=== PATIENT | female | born 1950 | race Caucasian/White ===

== ENCOUNTER → 2016-09-22 | Outpatient (CLI) | payer BC ==
--- NOTE | 2016-09-23 13:31 | MAMMOGRAPHY REPORT ---
BILATERAL DIGITAL SCREENING MAMMOGRAM WITH CAD: 09/22/2016 CLINICAL HISTORY: Routine screening. Patient has no complaints. TECHNIQUE: Current study was also evaluated with a Computer Aided Detection (CAD) system. Bilatera l CC and MLO views were obtained. COMPARISON: Comparison is made to exams dated: 09/16/2015 mammogram, 09/10/2014 mammogram, 09/09/2013 m ammogram, 08/28/2012 mammogram, 08/24/2011 mammogram, and 08/23/2010 mammogram - [facility]. BREAST COMPOSITION: There are scattered areas of fibroglandular density in both breasts. FINDINGS: No suspicious masses, calcifications, or areas of architectural distortion are noted in e ither breast. There has been no significant interval change compared to prior exams. Small bilatera l circumscribed benign-appearing masses are stable compared to prior exams. IMPRESSION: ACR BI-RADS CATEGORY 2: BENIGN There is no mammographic evidence of malignancy. A 1 year screening mammogram is recommended. The p atient will receive written notification of the results. Approximately 10% of breast cancers are not detected with mammography. A negative mammographic repor t should not delay biopsy if a clinically suggestive mass is present. Yumiko Miguel M.D. ah/:09/22/2016 16:05:03 Greenhouse Grower: Vicky HSU)(Keo)(BD), [facility] letter sent: Normal 1/2 BI-RADS Code: ACR BI-RADS Category 2: Benign
== END | disposition home or self-care (01) ==
LOC: C.MAMM 15:51
PROVIDERS: ATTEND Obstetrics & Gynecology
DX: Z12.31 Encounter for screening mammogram for malignant neoplasm of breast (principal)

== ENCOUNTER → 2016-10-10 | Outpatient (CLI) | payer BC | END | disposition home or self-care (01) | LOC: C.PAPS 09:41 | PROVIDERS: ATTEND Obstetrics & Gynecology | DX: Z01.419 Encounter for gynecological examination (general) (routine) without abnormal findings (principal) ==

== ENCOUNTER → 2017-09-25 | Outpatient (CLI) | payer OTHER ==
--- NOTE | 2017-09-26 15:13 | MAMMOGRAPHY REPORT ---
BILATERAL DIGITAL SCREENING MAMMOGRAM TOMOSYNTHESIS WITH CAD: 09/25/2017 CLINICAL HISTORY: Routine screening. Patient has no complaints. TECHNIQUE: Breast tomosynthesis in addition to standard 2D mammography was performed. Current study was also evaluated with a Computer Aided Detection (CAD) system. COMPARISON: Comparison is made to exams dated: 09/22/2016 mammogram, 09/16/2015 mammogram, 09/10/2014 maria de jesus mogram, 09/09/2013 mammogram, 08/28/2012 mammogram, and 08/24/2011 mammogram - [facility] er. BREAST COMPOSITION: There are scattered areas of fibroglandular density in both breasts. FINDINGS: No suspicious mass, architectural distortion or cluster of microcalcifications is seen. T here are stable benign masses in the lateral right breast and medial left breast. IMPRESSION: ACR BI-RADS CATEGORY 1: NEGATIVE There is no mammographic evidence of malignancy. A 1 year screening mammogram is recommended. The pa tient will receive written notification of the results. Approximately 10% of breast cancers are not detected with mammography. A negative mammographic report should not delay biopsy if a clinically suggestive mass is present. Tyra Groves M.D. ay/:09/25/2017 16:40:00 Tie Sawyer: Alondra SANTIAGO(R)(M), [facility] letter sent: Normal 1/2 BI-RADS Code: ACR BI-RADS Category 1: Negative
== END | disposition home or self-care (01) ==
LOC: C.MAMM 16:02
PROVIDERS: ATTEND Obstetrics & Gynecology
DX: Z12.31 Encounter for screening mammogram for malignant neoplasm of breast (principal)

== ENCOUNTER → 2017-11-20 | Outpatient (CLI) | payer OTHER | END | disposition home or self-care (01) | LOC: C.PAPS 11:33 | PROVIDERS: ATTEND Obstetrics & Gynecology | DX: Z12.4 Encounter for screening for malignant neoplasm of cervix (principal) ==

== ENCOUNTER 2024-11-19 07:45 | Observation (INO) ==
--- NOTE | 2024-10-09 13:18 | PAT Medication Instructions ---
Medication Instructions Date of Service October 09, 2024 Home Medications Medication Instructions Recorded acetaminophen 500 mg tablet 1,000 mg (2 x 500 mg) PO Q8 PRN 04/08/22 (Tylenol Extra Strength) pain #30 tabs alendronate 70 mg tablet (Fosamax) 70 mg PO WK #12 tabs 02/26/24 cholecalciferol (vitamin D3) 50 mcg (2,000 unit) capsule (Vitamin D3) 50 mcg PO QAM acetaminophen 500 mg tablet (Tylenol Extra Strength) 1,000 mg (2 x 500 mg) PO Q8 PRN pain alendronate 70 mg tablet (Fosamax) 70 mg PO WK rosuvastatin 10 mg tablet 10 mg PO HS glucosamine-chondroitin 250 mg-200 mg tablet (Osteo Bi-Flex) 1 tab PO DAILY ASK your prescriber and surgeon alendronate 70 mg tablet (Fosamax) 70 mg PO WK STOP taking 2 weeks before surgery (or as soon as possible if surgery is within 2 weeks) glucosamine-chondroitin 250 mg-200 mg tablet (Osteo Bi-Flex) 1 tab PO DAILY Take morning of surgery With a small sip of water, OTHERWISE NOTHING TO EAT OR DRINK AFTER MIDNIGHT: cholecalciferol (vitamin D3) 50 mcg (2,000 unit) capsule (Vitamin D3) 50 mcg PO QAM Take evening before surgery acetaminophen 500 mg tablet (Tylenol Extra Strength) 1,000 mg (2 x 500 mg) PO Q8 PRN pain (if needed) rosuvastatin 10 mg tablet 10 mg PO HS Other Notes If you have any questions please call us at [phone] or [phone] or [phone] or [phone]
--- NOTE | 2024-10-18 10:26 | Anesthesiology Consultation ---
Date of Service October 18, 2024 Assessment & Plan (1) Encounter for pre-operative examination: - Infectious disease screening: Per assessment on 10/18/24- No known recent infectious disease contacts or current infectious disease symptoms. - Outpatient joint assessment: Pt currently scheduled for inpatient pathway. If surgeon requests review for outpatient joint pathway, patient is an acceptable candidate for outpatient joint program from anesthesia standpoint pending surgeon's office assessment that patient is motivated, has good support and completes [facility] Day Joint Program preop requirements. - Patient acceptable risk for surgery pending surgeon-ordered PCP preop evaluation (Dr. Francisco Florez, appt 10/25). Chart Review Chart Review: Patient seen in Pre Admission Testing Teaching & Discussion Pre-Anesthesia Teaching/Discussion Notes: Instructed NPO after midnight before surgery,except medications with 15 cc of water. Medication instructions provided according to the PAT guidelines. History Surgery Operation Date: 11/19/24 07:00 Proposed Procedures p Right Total Knee Arthroplasty - Sebastián Paulino Miranda MD Height/Weight Height: 5 ft 4 in Weight: 75.6 kg Allergies Allergy/AdvReac Type Severity Reaction Status Date / Time No Known Drug Allergies Allergy Verified 10/09/24 09:31 Medications Home Medications Medication Instructions Recorded Confirmed Last Taken cholecalciferol (vitamin D3) 50 50 mcg PO QAM 03/30/22 10/09/24 04/01/22 mcg (2,000 unit) capsule (Vitamin D3) acetaminophen 500 mg tablet 1,000 mg (2 x 500 mg) PO Q8 PRN 04/08/22 10/09/24 Unknown (Tylenol Extra Strength) pain #30 tabs alendronate 70 mg tablet (Fosamax) 70 mg PO WK #12 tabs 02/26/24 10/09/24 Unknown rosuvastatin 10 mg tablet 10 mg PO HS 04/04/24 10/09/24 Unknown glucosamine-chondroitin 250 mg-200 1 tab PO DAILY 10/09/24 10/09/24 Unknown mg tablet (Osteo Bi-Flex) Past Medical History Medical History Bilateral knee pain Dyslipidemia History of COVID-19 (07/2023) Symptoms resolved Laryngopharyngeal reflux Rare No meds/no current issues Osteopenia Presence of pessary Prolapse of female pelvic organs Pessary in place Exercise / Class Metabolic Activity II 4-5 Yardwork/Stairs/Walk up hill (one FS: No CP, no SOB) Past Family History Family History Mother Osteoporosis Cancer Sister Ovarian cancer Cancer Hypertension Father Cardiac disorder Hypertension Son Allergies Other No family history of adverse response to anesthesia Denies family history of Bleeding disorder Past Surgical History Surgical History H/O wisdom tooth extraction History of colonoscopy S/P right knee arthroscopy Right knee arthroscopy, chondroplasty, loose body removal (04/08/22): LMA#4 at [facility] Past Anesthesia History No Hx of Anesthesia Complications and No Family Hx of Anesthesia Complications History of PONV No Hx of PONV and Hx of Motion Sickness (Rare, remote hx) Social History Smoking Status: Never smoker Do You Dip or Chew Tobacco: No Hx Alcohol Use: Yes Alcohol type: wine alcohol intake frequency: a few times a week Hx Substance Use: No substance use type: does not use Review of Systems Patient denies chest pain, shortness of breath, dyspnea on exertion, fever, chills, cough, wheezing, palpitations. Physical Exam Vital Signs BP 112/70 P 65 TEMP 97.9 SP02 95%RA RESP 16 Physical Full cervical extension range of motion. Full TMJ range of motion. TMD > 3.5 finger breaths Mallampati Score II Dentition: intact Lungs: clear throughout to auscultation Cardiac: regular rate and rhythm, no murmurs noted Spine: normal Carotid arteries: negative bruit Extremities: no LE edema Lab Results Anesthesia Preop Results Results Anesthesia Widget: WBC 5.78 K/ul (4.8-10.8) 10/18/24 Hgb 11.5 g/dl (12.0-16.0) L 10/18/24 Hct 35.3 % (37.0-47.0) L 10/18/24 Plt 244 K/uL (130-400) 10/18/24 Na 139 mmol/L (136-145) 10/18/24 K 4.1 mmol/L (3.5-5.1) 10/18/24 Cl 103 mmol/L (98-107) 10/18/24 CO2 30 mmol/L (21-32) 10/18/24 BUN 17 mg/dl (6-23) 10/18/24 Creat 0.70 mg/dl (0.6-1.2) 10/18/24 Glucose Level 71 mg/dl (70-99(Fasting)) 10/18/24 PT 10.9 Seconds (9.0-12.0) 10/18/24 PTT 26 Seconds (21-31) 10/18/24 INR 1.0 (0.9-1.1) 10/18/24 Urine Color Yellow 10/19/24 Urine Appearance Clear (Clear) 10/19/24 Urine pH 5.5 (4.5-7.5) 10/19/24 Urine Specific [place] 1.010 (1.000-1.030) 10/19/24 Urine Protein Negative (Negative) 10/19/24 Urine Glucose (UA) Negative (Negative) 10/19/24 Urine Ketones Negative (Negative) 10/19/24 Urine Blood Negative (Negative) 10/19/24 Urine Nitrite Negative (Negative) 10/19/24 Urine Bilirubin Negative (Negative) 10/19/24 Urine Urobilinogen Negative (Negative) 10/19/24 Urine Leukocyte Esterase 1+ (Negative) H 10/19/24 Urine WBC (Auto) 0-5 /hpf (0-5) 10/19/24 Urine RBC (Auto) 0-2 /hpf (0-2) 10/19/24 Urine Hyaline Casts (Auto) 0-2 /lpf (0-2) 10/19/24 Urine Epithelial Cells (Auto) 0-2 /hpf (0-2) 10/19/24 Urine Bacteria (Auto) None Seen (None Seen) 10/19/24 Blood Type B Positive 10/18/24 Antibody Screen NEGATIVE 10/18/24 Testing Electrocardiogram Date: 10/18/24 Findings: + NSR @ (65) Chest X-Ray Date: 10/18/24 Findings: + NAD
[~2024-11-19 07:45] MED LIST: BUPIVACAINE 0.5 % 5 MG/1 ML PF 10ML VIAL ONE; MIDAZOLAM HCL 1 MG/ML 2ML VIAL ONE; PROPOFOL IV EMULSION 10 MG/ML 20 ML VIAL IV ONE; ROPIVACAINE 0.5% 5 MG/ML 30 ML VIAL ONE
[2024-11-19] MEDS: LR 500ML BOLUS, THEN 15ML/HR IV SCH (08:17)
[2024-11-19] MEDS: LR 60ML/HR IV SCH (08:17)
[2024-11-19] MEDS: CeleBREX 200 MG CAP PO SCH ×2 (08:18→20:52)
[2024-11-19] MEDS: Scopolamine 1 MG TDSY TD SCH (08:18)
[2024-11-19] MEDS: ACETAMINOPHEN 500 MG TAB PO SCH ×2 (08:18→15:37)
[2024-11-19] MEDS ORDERED: fentaNYL citrate PF 100 MCG/2 ML VIAL IV PRN (08:57)
[2024-11-19] MEDS ORDERED: ATROPINE SULFATE 0.1 MG/ML 10ML SYR IV PRN (08:57)
[2024-11-19] MEDS ORDERED: HYDROmorphone INJ 1 MG/ML SYRINGE IV PRN (08:57)
[2024-11-19] MEDS ORDERED: ePHEDrine sulfate 50 MG/ML AMP IV PRN (08:57)
[2024-11-19] MEDS ORDERED: ONDANSETRON INJ 2 MG/ML 2 ML VIAL IV PRN ×2 (08:57→15:02)
--- OUTSIDE RECORDS SUMMARY | 2024-11-19 09:02 | External Medical Summary | Continuity of Care Document ---
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 Truck Leasing Manager Name Role Phone Kareen Malagon Primary Care jimmy [phone] Encounter [facility] [id number] Date(s): 10/25/24 - 10/25/[address], [address] [place] [address] [phone] Encounter Diagnosis Body mass index [BMI] 28.0-28.9, adult(Discharge Diagnosis) - 10/25/24 Physical exam(Discharge Diagnosis) - 10/25/24 Preop examination(Discharge Diagnosis) - 10/25/24 Discharge Disposition: Home or Self Care Attending Physician: Francisco Florez DO, Mariana Annette Referring Physician: Francisco Florez DO, Mariana Annette Encounter Type: Clinic Allergies, Adverse Reactions, Alerts No Known Allergies Assessment and Plan Extracted from: Title:Office Visit Note Author:Francisco Florez DO, Mariana Annette Date:10/25/24 1. Physical exam - encouraged diet and exercise regimen appropriate for patient age and condition - routine dental and eye care per continuity - vaccinations reviewed and up to date per EHR - screening labs reviewed - following with gynecology for routine preventative female care - screening for colon cancer criteria reviewed and recommendations per age and history 2. Preop examination Patient seen for irma-operative risk stratification for R TKA. Patient reports no cardiac symptoms at rest or on exertion, no history of ischemic heart disease, CHF, CVD, diabetes, EtOH/drug abuse, recent anticoagulant or antithrombotic use, personal or family history of coagulopathy, or CKD. Reports being able to achieve 4- 10 METs of activity during climbing stairs/walking uphill. This patient's does not have any identifiable cardiac risk factors. According to the RCRI, this number of risk factors stratifies the patient to Class I, which carries with it a 0.4% risk of major CV complications, such as IL, CHF, or malignant arrhythmia (Circulation 1999; 100:1043). Patient is low risk for the proposed procedure. Immunizations Given and Recorded Vaccine Date Status Refusal Reason pneumococcal 20-valent conjugate vaccine 1 10/25/24 Given influenza virus vaccine, inactivated 05/28/24 Mk rded influenza virus vaccine, inactivated 04/21/22 Mk rded influenza virus vaccine, inactivated 04/24/21 Mk rded influenza virus vaccine, inactivated 05/11/20 Give n influenza virus vaccine, inactivated 08/07/19 Give n influenza virus vaccine, inactivated 05/30/18 Mk rded influenza virus vaccine, inactivated 04/03/17 Mk rded influenza virus vaccine, inactivated 05/03/16 Mk rded influenza virus vaccine, inactivated 04/30/15 Mk rded influenza virus vaccine, inactivated 03/26/14 Mk rded influenza virus vaccine, inactivated 05/31/13 Give n influenza virus vaccine, inactivated 05/18/12 Give n SARS-CoV-2 (COVID-19) mRNA-vacc - [id number] 05/28/24 Recorded SARS-CoV-2 (COVID-19) mRNA-vacc - [id number] 04/20/23 Recorded RSV vaccine preF3, recombinant 05/04/23 Recorded SARS-CoV-2 mRNA-1273 (6y+ bivalent) 2 04/21/22 Rec orded SARS-CoV-2 (COVID-19) mRNA-1273 vaccine 3 11/03/21 Recorded SARS-CoV-2 (COVID-19) mRNA-1273 vaccine 05/19/21 R ecorded SARS-CoV-2 (COVID-19) mRNA-1273 vaccine 09/30/20 R ecorded SARS-CoV-2 (COVID-19) mRNA-1273 vaccine 09/02/20 R ecorded zoster vaccine, inactivated 12/21/19 Recorded zoster vaccine, inactivated 08/13/19 Recorded tetanus toxoids-diphtheria, Td (Adult) 08/13/19 Re corded tetanus toxoids-diphtheria, Td (Adult) 10/25/02 Re corded tetanus toxoids-diphtheria, Td (Adult) 01/19/95 Re corded pneumococcal 23-valent vaccine 08/07/19 Given pneumococcal 13-valent vaccine 09/03/16 Given zoster vaccine live 06/18/12 Given tetanus/diphtheria/pertuss, acel (Tdap) 09/04/07 R ecorded 1Result Comment: Arianna Manjarrez Ma 2Result Comment: 2022-07-14: Historical information-source unspecified 3Result Comment: 2022-07-14: Historical information-source unspecified Mental Status 10/25/24 Barriers to Learning one year None evide nt Mandatory Health Literacy Documentation Yes Health Literacy Communication Barriers N ever Primary Language Slovenian Problem List Condition Confirmation Course Effective Dates Status H ealth Status Informant High risk for hip fracture 1 Confirmed 08/15/19 Active Digital mucinous cyst Confirmed Active Family history of breast cancer in mother 2 Confirmed Active Family history of ovarian cancer 3 Confirmed Active Family history of osteoporosis in mother Confirmed Active Chronic GERD 4 Confirmed Active History of colonic polyps 5 Confirmed Active Healthcare maintenance Confirmed Active Need for influenza vaccination Confirmed Active Onychomycosis Confirmed Active Knee osteoarthritis Confirmed Active Osteopenia Confirmed Active Knee pain, bilateral Confirmed Active Medicare annual wellness visit, subsequent Confirmed Active SK (seborrheic keratosis) Confirmed Active Skin irritation 6 Confirmed Active S/P orthopedic surgery, follow-up exam Confirmed Active Tinea pedis Confirmed Active Weight disorder Confirmed Active 110 yr hip fx. risk: 2.5% 2mother at age 85 3sister at 68 4manifested by cough, hoarseness 5tubular adenoma 6rt great toe Diagnosis Diagnosis Type Effective Dates Health Status Clinical Service Informant Body mass index [BMI] 28.0-28.9, adult Discharge Diagnosis 10/25/24 Non-Specified Preop examination Discharge Diagnosis 10/25/24 Non-Specified Physical exam Discharge Diagnosis 10/25/24 Non-Specified Procedures Procedure Date Related Diagnosis Body Site Status Colonoscopy 1, 2, 3 04/15/24 Compl eted Arthroplasty of right knee 04/08/22 Completed Chondroplasty 4 04/08/22 Completed Mammography 5 03/25/22 Completed Shave biopsy and cauterization of skin 05/19/20 Completed Mammogram 6 05/05/20 Completed DEXA - dual energy X-ray absorptiometry 7 08/15/19 Completed Colonoscopy 8, 9 04/02/19 Complete d Mammogram - screening 10 10/02/18 Completed PAP test date 11 11/20/17 Complete d Mammogram - screening 12 09/25/17 Completed Papanicolaou smear 13 10/10/16 Com pleted Mammogram 14, 15 09/22/16 Complete d DEXA - Dual energy X-ray angela ton absorptiometry 16 07/14/16 Completed Chest x-ray 17 06/06/16 Completed Chest x-ray 18 04/05/16 Completed Chest x-ray 19 04/05/16 Completed PAP test date 20 09/30/15 Complete d Papanicolaou smear 21 09/16/14 Com pleted Mammogram 22 09/10/14 Completed Colonoscopy 23 02/05/14 Completed Papanicolaou smear 24 09/13/13 Com pleted Mammogram - screening 25 09/09/13 Completed DEXA - Dual energy X-ray angela ton absorptiometry 26 01/14/11 Completed colonoscopy and adenoma polypectomy 27 01/28/09 Completed wisdom tooth Completed 1Repeat colonoscopy in 5 years. 2- One 2 mm polyp in the cecum, removed with a cold biopsy forceps. Resected and retrieved. - One 2 mm polyp in the transverse colon, removed with a cold biopsy forceps. Resected and retrieved. - Diverticulosis in the left colon. - Redundant colon. - Internal hemorrhoids. - The examination was otherwise normal on direct and retroflexion views. 3A) Colon, cecum, polypectomy: Tubular adenoma. B) Colon, transverse, polypectomy: Early hyperplastic polyp. 4Patella, MFC, LTP, Loose Body Removal, Meniscus Debridement. 5There is no mammographic evience of malignancy. A 1 year screening mammogram is recommended. 6WNL 710 yr risk: major: 12.7%; hip: 2.5% lowest T-score: --2.2 right fem. neck 8One 3 mm polyp in the ascending colon, removed with a cold biopsy forceps. Resection and retrieved. 9tubular adenoma. Repeat in 5 yr. 10WNL - 1 yr 11Negative for intraepithelial lesion or malignancy. 12WNL = 1yr 13Negative for intraepithelial lesion or malignancy. 143/17- No malignancy. One year screening recommended. 15No malignancy. One year screening recommended. 16-1.9 spine, -1.6 fem. neck; fx. risk: 9.4%/1.1% 17Persistent subtle increased density in right lung apex. CT scanning is recommended in f/u to exclude subtle apical lesion. 18No acute parenchymal consolidation. Nonspecific subcentimeter right apical nodularity. Absence of prior radiographs, short term f/u recommended. 19Impression: No evidence of acute parenchymal consolidation Nonspecific subcentimeter right apical nodularity. the absence of prior radiographs, short-term follow-up is recommended. 20Negative 21Negative for intraepithelial lesion or malignancy. 22No malignancy. One year screening recommended. 23The examind portion of the ileum was normal. The entire examined colon is normal. Repeat colonoscopy in 5 years. 24WNL 25WNL 26--1.7 LS spine, -0.8% worse 27repeat in 2013 Vital Signs Most recent to oldest [Reference Range]: 1 Height 162.5 cm (10/25/24 8:40 AM) Patient Weight 75 kg (10/25/24 8:40 AM) Body Mass Index 28.4 kg/m2 (10/25/24 8:40 AM) Temperature [36.5-37.9 DegC] 36.0 DegC *LOW* (10/25/24 8:40 AM) Heart Rate 75 bpm (10/25/24 8:40 AM) Blood Pressure 120/80mmHg (10/25/24 8:40 AM) Cuff Pulse Pressure 40 mmHg (10/25/24 8:40 AM) Social History Social History Type Response Smoking Status Never smoked cigaret porsha Sex Female Sex Representation Female (finding) FCM Outpt Note * Francisco Florez DO, Mariana Annette: PERFORM Event Display: FCM Outpt Note Authored Date: [id number] Chief Complaint Preop right knee replacment 11/19/24 History of Present Illness Patient presents for physical exam and preop She has a PMH of GERD, colon polyps, osteopenia, knee OA. No acute complaints at this time. 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 Busy with 5 grandchildren. Health Maintenance: - Colon CA screening: colonoscopy 03/2024 - 5 yr f/u - Cervical CA screening: follows with gynecology - Breast CA screening: mammogram 03/2024 benign - Hep C screening: NR - DEXA scan: Jul 2024 osteopenia - FRAX: major fx 11.6%, hip 2.4% No hospitalizations in the last 12 months nor severe acute injuries not accounted for in chart. Routine dental care without complaint Routine eye care without issue presently, +veglasses/contacts Vaccination schedule reviewed in EHR Histories updated and reviewed with patient with changes reflected. Feeling safe at home and in relationships without concern. PRE-OPERATIVE EVALUTION Requested by: Dr. Miranda Planned surgery: R TKA [ X ] Intermediate risk (intraperitoneal, intrathoracic, CEA, head/ neck, ortho, urologic, prostate) Exercise tolerance: 7-9 METS [Vigorous]: hiking hills; jogging; basketball; walking up stairs; tennis; jumping jacks Bleeding tendency: Denies h/o bleeding disorders or blood clots Substance use: None Prior anesthesia: No history of anesthesia complications with prior surgeries Revised Cardiac Risk Index: [0] Higher Risk Surgery (intraperitoneal, intrathoracic, supra-inguinal vascular) [0] Ischemic Heart Disease [0] History of CHF [0] History of cerebrovascular disease [0] Insulin therapy for DM [0] Pre-op Cr >2 Total Score = 0 10 system ROS completed and negative except as noted above. Physical Exam Vitals & Measurements T: 36.0 °C HR: 75 (Monitored) BP: 120/80 SpO2: 98% HT: 162.5 cm WT: 75.000 kg (Dosing) WT: 75 kg BMI: 28.4 PHQ2 Data (Data Documented on:10/25/2024 08:39) Emotional health assessment NEGATIVE General: _Alert and oriented, No acute distress Neck: no cervical lymphadenopathy, no thyromegaly, thyroid tenderness or thyroid masses. HEENT: _ Normocephalic, TM clear, Nl gross hearing, moist oral mucosa _ Cardiovascular: _Normal rate, Regular rhythm, No murmur, No gallop. Respiratory: _Lungs are clear to auscultation, Respirations are non-labored, Breath sounds are equal Gastrointestinal: _Soft, Non-tender, Non-distended, Normal bowel sounds. Musculoskeletal: _Normal range of motion, normal strength. Neurologic: Normal sensory, Normal motor function, CN II-XII grossly intact. Integumentary: _Warm, Dry, [place]. Psych: Mood-affect congruence. Reports no SI/HI. Speech is of normal pace and content Assessment/Plan 1. Physical exam - encouraged diet and exercise regimen appropriate for patient age and condition - routine dental and eye care per continuity - vaccinations reviewed and up to date per EHR - screening labs reviewed - following with gynecology for routine preventative female care - screening for colon cancer criteria reviewed and recommendations per age and history 2. Preop examination Patient seen for irma-operative risk stratification for R TKA. Patient reports no cardiac symptoms at rest or on exertion, no history of ischemic heart disease, CHF, CVD, diabetes, EtOH/drug abuse, recent anticoagulant or antithrombotic use, personal or family history of coagulopathy, or CKD. Reports being able to achieve 4-10 METs of activity during climbing stairs/walking uphill. This patient's does not have any identifiable cardiac risk factors. According to the RCRI, this number of risk factors stratifies the patient to Class I, which carries with it a 0.4% risk of major CV complications, such as IL, CHF, or malignant arrhythmia (Circulation 1999; 100:1043). Patient is low risk for the proposed procedure. Attestation Time spent: Pre-visit planning: _5 Syoe-ls-kujz visit: _15 Post-visit (orders/documentation/coordination of care): 2 Total visit time: _22 spent discussing preop evaluation bot including preventive care Problem List/Past Medical History Ongoing Chronic GERD Digital mucinous cyst Family history of breast cancer in mother Family history of osteoporosis in mother Family history of ovarian cancer Healthcare maintenance High risk for hip fracture History of colonic polyps Knee osteoarthritis Knee pain, bilateral Medicare annual wellness visit, subsequent Need for influenza vaccination Onychomycosis Osteopenia S/P orthopedic surgery, follow-up exam SK (seborrheic keratosis) Skin irritation Tinea pedis Weight disorder Resolved Community acquired pneumonia Procedure/Surgical History •Colonoscopy| Service Date: 04/15/2024•Chondroplasty| Service Date: 04/08/2022•Arthroplasty of right knee| Service Date: 04/08/2022•Mammography| Service Date: 03/25/2022•Shave biopsy and cauterization of skin| Service Date: 05/19/2020•Mammogram| Service Date: 05/05/2020•DEXA - dual energy X- ray absorptiometry| Service Date: 2019•Colonoscopy| Service Date: 04/02/2019•Mammogram - screening| Service Date: 10/02/2018•PAP test date| Service Date: 11/20/2017•Mammogram - screening| Service Date: 09/25/2017•Papanicolaou smear| Service Date: 10/10/2016•Mammogram| Service Date: 09/22/2016•DEXA - Dual energy X-ray photon absorptiometry| Service Date: 07/14/2016•Chest x-ray| Service Date: 06/06/2016•Chest x-ray| Service Date: 04/05/2016•Chest x-ray| Service Date: 04/05/2016•PAP test date| Service Date: 09/30/2015•Papanicolaou smear| Service Date: 09/16/2014•Mammogram| Service Date: 09/10/2014•Colonoscopy| Service Date: 02/05/2014•Papanicolaou smear| Service Date: 09/13/2013•Mammogram - screening| Service Date: 09/09/2013•DEXA - Dual energy X-ray photon absorptiometry| Service Date: 01/14/2011•colonoscopy and adenoma polypectomy| Service Date: 01/28/2009•wisdom tooth Medications calcium-vitamin D(Calcium 600+D), PO, Daily cholecalciferol(Vitamin D3 1000 intl units (25 mcg) oral capsule), 1000 Int_Unit= 1 cap, PO, Daily,10 refills chondroitin-glucosamine(chondroitin-glucosamine 200 mg-250 mg oral capsule), 2 cap, PO, Daily ibuprofen magnesium sulfate/potassium sulfate/sodium sulfate(Suprep Bowel Prep Kit oral liquid), See Instructions rosuvastatin(Crestor 10 mg oral tablet), 10 mg= 1 tab, PO, qhs, 3 refills sodium hyaluronate(Euflexxa 10 mg/mL intra-articular solution), 20 mg, intra- articular, q7days Allergies NKA Social History Smoking Status Never smoked cigarettes Alcohol - No Risk Use:Current Type:Wine Frequency:1-2 times per week Average drinks per episode in last year:1 Employment/School - No Risk 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 Activity level:Desk/Office Exercise - Regular exercise Duration (average number of minutes):55 Times per week:5-6 times/week Self assessment:Excellent condition Exercise type:Walking, Aerobics, Swimming, Weight lifting - Comments: bicycling Home/Environment - No Risk Injuries/Abuse/Neglect in household:No Lives with:Spouse Living situation:Home/Independent Alcohol abuse in household:No Substance abuse in household:No Smoker in household:No Feels unsafe at home:No Family/Friends available to help:Yes Nutrition/Health Type of diet:Regular Substance Abuse - Denies Substance Abuse Tobacco - Denies Tobacco Use Use:Never smoker Intake (IView) Smoking History Cigarette smoker: Never smoked cigarettes Tobacco Product Use: Never used other tobacco products Family History Cancer of ovary: Sister (Dx at 68 years). Crohn's disease..: Son. Fibroid uterus: Sister. High Blood Pressure: Father and Sister. Neuropathy: Sister. Obesity: Sister, Sister, Son, Son and Son. Osteoporosis: Mother and MGM. Health Status Family Member(s) Family Member(s) Relationship: Sister, Name: Teresita, Age: 71 Years, Cause: ovarian CA Relationship: MGM, Age: 96 Years, Cause: old age Relationship: Mother, Age: 85 Years, Cause: Breast Cancer Relationship: Father, Age: 69 Weeks, Cause: [place] Relationship: PGF, Age: 72 Years, Cause: leukemia Relationship: PGM, Age: 88 Years, Cause: old age Relationship: MGF, Age: 89 Years, Cause: Parkinsons Immunizations Vaccine Date Status pneumococcal 20-valent conjugate vaccine 10/25/2024 Given Comments : Arianna Manjarrez Ma influenza virus vaccine, inactivated 05/28/2024 Recorded SARS-CoV-2 (COVID-19) mRNA-vacc - [id number] 05/28/2024 Recorded RSV vaccine preF3, recombinant 05/04/2023 Recorded SARS-CoV-2 (COVID-19) mRNA-vacc - [id number] 04/20/2023 Recorded influenza virus vaccine, inactivated 04/21/2022 Recorded SARS-CoV-2 mRNA-1273 (6y+ bivalent) 04/21/2022 Recorded Comments : 2022-07-14: Historical information-source unspecified SARS-CoV-2 (COVID-19) mRNA-1273 vaccine 11/03/2021 Recorded Comments : 2022-07-14: Historical information-source unspecified SARS-CoV-2 (COVID-19) mRNA-1273 vaccine 05/19/2021 Recorded influenza virus vaccine, inactivated 04/24/2021 Recorded SARS-CoV-2 (COVID-19) mRNA-1273 vaccine 09/30/2020 Recorded SARS-CoV-2 (COVID-19) mRNA-1273 vaccine 09/02/2020 Recorded influenza virus vaccine, inactivated 05/11/2020 Given zoster vaccine, inactivated 12/21/2019 Recorded zoster vaccine, inactivated 08/13/2019 Recorded tetanus toxoids-diphtheria, Td (Adult) 08/13/2019 Recorded influenza virus vaccine, inactivated 08/07/2019 Given pneumococcal 23-valent vaccine 08/07/2019 Given influenza virus vaccine, inactivated 05/30/2018 Recorded influenza virus vaccine, inactivated 04/03/2017 Recorded pneumococcal 13-valent vaccine 09/03/2016 Given influenza virus vaccine, inactivated 05/03/2016 Recorded influenza virus vaccine, inactivated 04/30/2015 Recorded influenza virus vaccine, inactivated 03/26/2014 Recorded influenza virus vaccine, inactivated 05/31/2013 Given zoster vaccine live 06/18/2012 Given influenza virus vaccine, inactivated 05/18/2012 Given tetanus/diphtheria/pertuss, acel (Tdap) 09/04/2007 Recorded tetanus toxoids-diphtheria, Td (Adult) 10/25/2002 Recorded tetanus toxoids-diphtheria, Td (Adult) 01/19/1995 Recorded Recommendations Health Maintenance Pending (in the next year) OverDue Medicare Annual Wellness Visit due 09/20/23 and every 1 year Due Adult Social Determinants of Health Screening due 10/25/24 Unknown Frequency Due In Future Adult Influenza Vaccine not due until 01/14/25 and every 1 year Satisfied (in the past 1 year) Satisfied Adult Influenza Vaccine on 05/28/24. Satisfied by Francisco Florez DO, Mariana Annette Body Mass Index on 10/25/24. Satisfied by ROBIN Oneill Angela Breast Cancer Screening on 04/11/24. Satisfied by ROBIN Oneill Angela Lipid Screening on 11/30/23. Satisfied by [employer] Seasonal COVID 19 Vaccine on 05/28/24. Satisfied by Francisco Florez DO, Mariana Annette Electronic Signature on File Electronically Reviewed/Signed by: Kareen Florez DO Author Signature Dt/Tm:10/25/2024 09:14 AM Department of Family Medicine [facility] Patient Care team information Care Team Personnel Name: Francisco Florez DO, Mariana Annette Position: Physician - Family Med Member Role: Primary Care Provider Address: [address] [place] [address] Telecom: [phone] Name: Yodit Daniel Paula Position: Pharmacist Member Role: Pharmacy - Lifetime Address: [address] [address] [place] Care Team Related Persons Name: CHARLY HULL Name: CHARLY HULL Insurance Providers Guarantor name: ARIELLE HULL Health Plan Information #: 1 Payer: [employer] Member Number: [id number] Policy Number: NA Group Number: [id number] Health Plan Information #: 2 Payer: [employer] Member Number: [id number] Policy Number: NA Group Number: [id number]"
--- OUTSIDE RECORDS SUMMARY | 2024-11-19 09:03 | External Medical Summary | Continuity of Care Document ---
Author Name Unknown Organization [facility] [place] [id number] Address [address] [place] [id number] Care Team Providers Care Airframe Technical Officer Name Role Phone Kareen Malagon Primary Care P jimmy [phone] Encounter [facility] [id number] Date(s): 10/23/24 - 10/23/24 [facility] [address] [place] [id number] Encounter Diagnosis Knee osteoarthritis(Discharge Diagnosis) - 10/23/24 Discharge Disposition: Home or Self Care Attending Physician: TUYET Rodriguez [place] Encounter Type: Clinic Allergies, Adverse Reactions, Alerts No Known Allergies Immunizations Given and Recorded Vaccine Date Status [...] 05/18/12 Give n SARS-CoV-2 (COVID-19) mRNA-vacc - [id number] 05/28/24 Recorded SARS-CoV-2 (COVID-19) mRNA-vacc - [id number] 04/20/23 Recorded RSV vaccine preF3, recombinant 05/04/23 [...] Comment: 2022-07-14: Historical information-source unspecified Mental Status 10/23/24 Barriers to Learning one year None evide nt Mandatory Health Literacy Documentation Yes Health Literacy Communication Barriers N ever Primary Language Armenian Problem List Condition Confirmation Course Effective Dates [...] Effective Dates Health Status Clinical Service Informant Knee osteoarthritis Discharge Diagnosis 10/23/24 Procedures Procedure Date Related Diagnosis Body Site [...] 1yr 13Negative for intraepithelial lesion or malignancy. 143/9/17- No malignancy. One year screening recommended. 15No [...] recent to oldest [Reference Range]: 1 Height 161.5 cm (10/23/24 9:01 AM) Patient Weight 75.7 kg (10/23/24 9:01 AM) Body Mass Index 29.02 kg/m2 (10/23/24 9:01 AM) Temperature [36.5-37.9 DegC] 36.7 DegC (10/23/24 9:01 AM) Heart Rate 84 bpm (10/23/24 9:01 AM) Blood Pressure 122/70mmHg (10/23/24 9:01 AM) Social History Social History Type Response Smoking Status Never smoked cigaret porsha Sex Female Sex Representation Female (finding) Patient Care team information Care Team Personnel Name: Francisco Florez DO, Mariana Annette Position: Physician - Family Med Member Role: Primary Care Provider Address: [address] [place] [address] [place] Telecom: [phone] Name: Yodit Daniel Paula Position: Pharmacist Member Role: Pharmacy - Lifetime Address: [address] [address] [place] Care Team Related Persons Name: CHARLY HULL Name: CHARLY HULL Insurance Providers Guarantor name: ARIELLE HULL Health Plan Information #: 1 Payer: [employer] Member Number: [id number] Policy Number: NA Group Number: [id number] Health Plan Information #: 2 Payer: [employer] Member Number: [id number] Policy Number: NA Group Number: [id number]
--- NOTE | 2024-11-19 09:42 | History & Physical Bridge Note ---
Date of Service November 19, 2024 History & Physical Bridge Note I have examined the patient, reviewed the History & Physical and in the interval since the performance of the History & Physical I have noted the following changes of clinical significance: no changes noted
[2024-11-19] MEDS: TRANEXAMIC ACID 1,000 MG **IV Pre-op IV SCH (09:47)
[2024-11-19] MEDS: ceFAZolin 2000MG 2,000 MG/15 ML SYR IV SCH ×2 (10:16→17:08)
[2024-11-19] MEDS ORDERED: fentaNYL citrate PF 100 MCG/2 ML VIAL ONE (10:29)
[2024-11-19] MEDS ORDERED: ONDANSETRON INJ 2 MG/ML 2 ML VIAL ONE (11:01)
[2024-11-19] MEDS: ROPIV 0.5% 246mg, Ketorolac 30mg, EPINEPHrine 0.5mg in NSS INFIL SCH (11:03)
[2024-11-19] MEDS: ORTHO JOINT ANESTHETIC ONE (11:03)
[2024-11-19] MEDS: TRANEXAMIC ACID 1,000 MG **IV Intra-op IV SCH (12:00)
--- NOTE | 2024-11-19 12:32 | Post Operative Brief Note ---
Immediate Post Op Note Date of Surgery November 19, 2024 Pre & Post Diagnosis Operation Date: 11/19/24 09:50 Pre-Op Diagnosis: Right Knee Osteoarthritis Post-Op Diagnosis: Right Knee Osteoarthritis I identified the patient and participated in the time-out.: Yes Procedure Operation Date: 11/19/24 09:50 Actual Procedures p Right Total Knee Arthroplasty(Right) - Sebastián Miranda MD Surgeon Sebastián Miranda MD Blanket Washer Keo Rodriguez PA-C (No fellow avail) Estimated Blood Loss 100 Findings Consistent with Post-Op Diagnosis Fluids 1000 cc Specimens R knee contents Anesthesia Type MAC Spinal Regional Complications none
--- NOTE | 2024-11-19 12:32 | Operative Report ---
Post Operative Report Pre & Post Diagnosis Operation Date: 11/19/24 09:50 Pre-Op Diagnosis: Right Knee Osteoarthritis Post-Op Diagnosis: Right Knee Osteoarthritis I identified the patient and participated in the time-out.: Yes Procedure Operation Date: 11/19/24 09:50 Actual Procedures p [Right] Total knee replacement, imageless computer assisted navigation - Sebastián Miranda MD Surgeon Sebastián Miranda MD Tube Laser Operator Keo Rodriguez PA-C (No fellow avail) Estimated Blood Loss 100 Findings See Below Examined Under Anesthesia: ROM -- There was 5 degrees to 120 degrees of flexion Ligamentous examination -- revealed stable Jess, posterior drawer, varus and valgus stress at 5 and 30 degrees. [place] Grade IV changes of Patellofemoral & medial compartments, Grade III- IV changes in the lateral compartment. Fluids 1000 cc Specimens R knee contents Anesthesia Type MAC Spinal Regional Complications none Indications This is a 74-year-old female who has clinical and radiographic findings consistent with osteoarthritis of the a right knee. I recommended that a right total knee replacement be performed. The patient understands the risks of surgery, which include but not limited to: bleeding, infection, re-operation, damage to nerves and arteries, continued knee pain, knee stiffness, DVT, and . The patient understands all these instructions and explanations, all his questions have been satisfactorily addressed, and the patient has elected to proceed. Informed consent was signed. Description of Procedure IMPLANTS: 1. Femur: Triathlon #4 Right PS. 2. Tibia: Triathlon #3 [place] with 12 x 50 mm stem. 3. Insert: Triathlon #3 x 16 mm PS X3 poly. 4. Patella: Triathlon A29 x 9 mm X3 poly. 5. Palacos cement. Keo Rodriguez PA-C is assisting with positioning, retracting, and closure due to fellow not available. Procedure: The patient was taken to the Operating Room and placed in the supine position after spinal and adductor canal nerve block was administered. My initials and a multidisciplinary time-out were used to identify the right leg as the correct operative limb. A tourniquet was placed high on the thigh. Prior to the incision, 2 grams of intravenous Ancef were given. One g of TXA was given pre- operatively and another after the tourniquet was released. The right leg was then prepped and draped in a standard sterile fashion. An Esmarch was used to exsanguinate the leg, and the tourniquet was inflated to 250 mmHg. The planned mid-line 20 cm incision was created exposing the extensor mechanism. The medial parapatellar arthrotomy was made and the patella was everted. The patella was addressed first. It was prepared by reaming from 19 mm down to 11 mm. An A29 button was found to fit best. The peg holes were made in the standard fashion. The femur was addressed next and using computer assisted OrthoAlign with 3 degrees of flexion and 0 degrees of valgus, removing 10 mm in the standard fashion for the distal cut. The cut was made and the 4-in-1 cutting block for After making the Tibial cut and checking the balancing using OrthoAlign Lantern, the 4-in-1 cutting block for a size 4 femur was placed. These cuts and the cuts to place the box were made in the standard fashion. The tibia cut with using imageless computer assisted OrthoAlign, taking 2 mm from the medial low side. There was sufficient extension and flexion gap for 14 mm using the OrthoAlign Lantern. A #3 Tibial baseplate fit well. A trial with a 16 mm spacer showed excellent stability in both flexion and extension, with good ligament balance, and thumbs free patellar tracking. Range of motion of 0- 130 degrees. The tibial baseplate was prepped for the keel and stem. A stem was used due to some areas of soft bone, to avoid subsidence. All components were removed. 90 ml of total knee cocktail were injected into the soft tissues and periosteum. All surfaces were copiously irrigated prior to placement of the components. The femoral component followed by Tibial baseplate were cemented in place and a 16mm trial placed. Next, the patellar button was placed using the same cement. Once the cement had cured, the range of motion and stability were unchanged. The 16 mm X3 poly was placed. Again, the range of motion and stability were unchanged. The tourniquet was deflated. Hemostasis was obtained. Another 1g TXA was given. The extensor mechanism was closed with 1-0 Vicryl and 0 Stratafix with the knee bent approximately 60 degrees in a standard fashion. The peritenon and deep fascia was closed with 2-0 Vicryl. The subcutaneous layer was closed with 3-0 Vicryl. The skin was closed with Zipline and shield. The limb was cleaned and dried. 4x4 dressing was placed over top followed by ABDs, sterile Webril, and a foot to thigh Yair bandage. The patient was then transferred to the Recovery Room in stable condition. The sponge and needle counts were correct. POST-OP INSTRUCTIONS: The patient will be WBAT. The patient will be admitted to the hospital. Complete 24-hour course antibiotics. Labs will be obtained during the stay. DVT prophylaxis will include aspirin for 6 weeks, TEDs, and mechanical foot pumps. The dressing will be changed, postop day #2-3, and covered with a Silverlon dressing. I attest to the content of the Intraoperative Record and any orders documented therein. Any exceptions are noted below.
--- NOTE | 2024-11-19 13:13 | XRay Report ---
XR knee RT 1 or 2V routine CLINICAL HISTORY: Surgical Post Op COMPARISON: 10/23/2024 FINDINGS: Right knee prosthesis shows no hardware complication. There is expected soft tissue gas. IMPRESSION: Unremarkable postoperative exam. ACT 112: Negative or not required by law. Electronically signed by: Corky Harris M.D. 11/19/2024 1:11 PM
--- NOTE | 2024-11-19 13:46 | Anesthesiology Progress Note ---
Date of Service November 19, 2024 Anesthesia Post Procedure Vital Signs Vital Signs: Temp Pulse Resp BP Pulse Ox O2 Del Method O2 Flow Rate 11/19/24 13:40 49 L 12 114/55 L 95 Room Air 11/19/24 13:30 36.4 C L 50 L 12 111/56 L 97 Room Air 11/19/24 13:20 52 L 16 108/61 95 Room Air 11/19/24 13:10 53 L 12 121/64 95 Room Air 11/19/24 13:00 50 L 18 106/57 L 100 Oxymask 4 11/19/24 12:50 53 L 12 105/58 L 100 Oxymask 4 11/19/24 12:44 36.5 C 63 16 92/55 L 97 Oxymask 6 11/19/24 08:06 36.6 C 72 20 148/82 H 98 Room Air Transfer of Care Handoff Completed per policy Notes Mental Status: alert / awake / arousable and participated in evaluation Patient Amnestic to Procedure: Yes Nausea / Vomiting: adequately controlled Pain: adequately controlled Airway Patency, RR, SpO2: stable & adequate BP & HR: stable & adequate Hydration State: stable & adequate Neuraxial Anesthesia: was administered and sensory block is resolving Anesthetic Complications: no major complications apparent and Pt Satisfied with anesthetic care
[2024-11-19] MEDS ORDERED: diphenhydrAMINE Capsule 25 MG CAP PO PRN (15:02)
[2024-11-19] MEDS ORDERED: METOCLOPRAMIDE HCL INJ 5 MG/ML 2 ML VIAL IV PRN (15:02)
[2024-11-19] MEDS ORDERED: bisacodyL 10 MG SUPP PR PRN (15:02)
[2024-11-19] MEDS ORDERED: HYDROmorphone INJ 0.5 MG/0.5 ML SYR IV PRN (15:02)
[2024-11-19] MEDS ORDERED: MAGNESIUM HYDROXIDE SUSP 30 ML UDC PO PRN (15:02)
[2024-11-19] MEDS ORDERED: NALOXONE HCL 0.4 MG/1 ML VIAL/CARP IV PRN (15:02)
[2024-11-19] MEDS: Scopolamine CHECK PATCH PLACEMENT SCH (15:35)
[2024-11-19] MEDS: FERROUS GLUCONATE 324 MG TAB PO SCH (16:36)
[2024-11-19] MEDS: ASCORBIC ACID 500 MG TAB PO SCH (16:36)
[2024-11-19] MEDS: SODIUM CHLORIDE 0.9% 1,000 ML IV SCH (16:38)
--- NOTE | 2024-11-19 16:54 | Orthopedic Progress Note ---
Date of Service November 19, 2024 Assessment & Plan (1) Osteoarthritis of right knee: Plan: POD #0 s/p R TKA, doing as well as expected. Resume diet. WBAT with walker. OOB to chair. Continue pain control. Check labs tomorrow. DVT prophylaxis: TEDs 3 weeks, foot pumps while in hospital, ASA 81 mg BID for 6 weeks. PT/OT. D/C planning. Dressing to be changed POD 2-3 to Silverlon type dressing. Present on Admission?: Yes Admission and Anticipated Discharge Date Admission Date: November 19, 2024 Subjective No complaints, seen in recovery room approximately 1 hour after surgery. Physical Exam Physical Exam: RLE: BCR < sec. Unable to feel her toes, starting to feel her upper thigh. Unable to wiggle her toes. Results & Data Vital Signs (Past 12 Hours) Vital Signs Temp Pulse Pulse Resp BP Pulse Ox O2 Del Method 11/19/24 15:58 36.6 C 50 L 16 97/59 L 100 Room Air 11/19/24 15:33 36.8 C 47 L 16 102/61 99 Room Air 11/19/24 15:00 36.6 C 51 L 16 90/55 L 99 Room Air 11/19/24 14:35 54 L 12 100/51 L 97 Room Air 11/19/24 14:20 54 L 12 105/50 L 96 Room Air 11/19/24 14:05 48 L 14 116/61 100 Room Air 11/19/24 13:50 50 L 14 103/48 L 97 Room Air 11/19/24 13:40 49 L 12 114/55 L 95 Room Air 11/19/24 13:30 36.4 C L 50 L 12 111/56 L 97 Room Air 11/19/24 13:20 52 L 16 108/61 95 Room Air 11/19/24 13:10 53 L 12 121/64 95 Room Air 11/19/24 13:00 50 L 18 106/57 L 100 Oxymask 11/19/24 12:50 53 L 12 105/58 L 100 Oxymask 11/19/24 12:44 36.5 C 63 16 92/55 L 97 Oxymask 11/19/24 08:06 36.6 C 72 20 148/82 H 98 Room Air O2 Flow Rate 11/19/24 15:58 11/19/24 15:33 11/19/24 15:00 11/19/24 14:35 11/19/24 14:20 11/19/24 14:05 11/19/24 13:50 11/19/24 13:40 11/19/24 13:30 11/19/24 13:20 11/19/24 13:10 11/19/24 13:00 4 11/19/24 12:50 4 11/19/24 12:44 6 11/19/24 08:06 Diagnostic Findings Impressions Knee X-Ray 11/19/24 12:50 XR knee RT 1 or 2V routine CLINICAL HISTORY: Surgical Post Op COMPARISON: 10/23/2024 FINDINGS: Right knee prosthesis shows no hardware complication. There is expected soft tissue gas. IMPRESSION: Unremarkable postoperative exam. ACT 112: Negative or not required by law. Electronically signed by: Corky Harris M.D. 11/19/2024 1:11 PM
[2024-11-19] MEDS: SODIUM CHLORIDE 0.9% 1,000 ML IV ONE (17:12)
[2024-11-19] MEDS: SENNA 8.6 MG TAB PO SCH (20:52)
[2024-11-19] MEDS: DOCUSATE SODIUM 100 MG CAP PO SCH (20:52)
[2024-11-19] MEDS: ROSUVASTATIN CALCIUM 10 MG TAB PO SCH (20:52)
[2024-11-19] MEDS: oxyCODONE HCL IR 5 MG TAB (IMMEDIATE RELEASE) PO PRN (22:08)
[2024-11-19 23:32] VITALS: TEMP 98.1
[2024-11-20 03:28] VITALS: RESP 16
[2024-11-20 05:30] LABS: Hematocrit (blood only) 29.9 % (37.0-47.0); Hemoglobin 9.8 g/dl (12.0-16.0); Mean Corpuscular Hemoglobin 30.3 pg (25.0-34.0); Mean Corpuscular Hgb Conc 32.8 g/dL (32.0-36.0); Mean Corpuscular Volume 92.6 fL (80.0-100.0); Mean Platelet Volume 9.4 fL (9.4-12.4); Platelet Count 221 K/uL (130-400); RDW Coefficient of Variation 12.7 % (11.5-14.5); RDW Standard Deviation 43.2 fL (36.4-46.3); Red Blood Count 3.23 M/uL (4.20-5.40); White Blood Count 10.47 K/ul (4.8-10.8)
[2024-11-20 05:45] LABS: BUN Creatinine Ratio 21.9 (10-20); Calcium 8.4 mg/dl (8.6-10.3); Creatinine Clr Calc Pharmacy 68.4 ml/min; Potassium 4.4 mmol/L (3.5-5.1)
[2024-11-20] MEDS: CHOLECALCIFEROL 25 MCG (1000 UNITS) TAB PO SCH (07:09)
[2024-11-20] MEDS: ASPIRIN 81 MG ECTAB PO SCH (07:09)
[2024-11-20] MEDS: MULTIVITAMIN TAB PO SCH (07:09)
[2024-11-20 07:49] VITALS: BP 106/69; PULSE 56; O2SAT 95
--- NOTE | 2024-11-20 09:34 | Orthopedic Progress Note ---
Date of Service November 20, 2024 Assessment & Plan (1) Osteoarthritis of right knee: Plan: POD #1 s/p R TKA, doing as well as expected. Resume diet. WBAT with walker. OOB to chair. Continue pain control. H/H mildly low due to acute blood loss anemia. Asympotmatic. No need for blood transfusion at this time. DVT prophylaxis: TEDs 3 weeks, foot pumps while in hospital, ASA 81 mg BID for 6 weeks. PT/OT. D/C planning. Ice and elevate right lower extremity. Dressing to be changed POD 2-3 to Silverlon type dressing. Patient is scheduled for this as outpatient 11/21/24. Hospitalist consult ordered for low blood pressure (improved) and low pulse rate. She continues to by asymptomatic. If safe in PT/OT and cleared from medicine standpoint then may discharge to home with HH later today. Admission and Anticipated Discharge Date Admission Date: November 19, 2024 Subjective Patient was sitting in the chair. Eating her breakfast. Overall feeling well. She states that her right leg just feels "heavy". She denies any postoperative nausea, vomiting, lightheadedness or dizziness. is at bedside. Physical Exam Musculoskeletal: Exam of her right lower extremity: The postoperative dressing is clean, dry and intact. Full ankle range of motion with normal strength. Distal sensation of her right foot is intact. Distal pulses are 2+. No significant distal edema. She is able to independently straight leg raise. No no pain in her right hip with logrolling. Results & Data Vital Signs (Past 12 Hours) Vital Signs Temp Pulse Resp BP BP Pulse Ox O2 Del Method 11/20/24 07:46 36.7 C 56 L 16 106/69 95 Room Air 11/20/24 03:00 36.7 C 59 L 16 101/62 92 Room Air 11/19/24 23:15 36.7 C 50 L 14 110/68 95 Room Air Laboratory Results 11/20/24 Range/Units 04:43 WBC 10.47 (4.8-10.8) K/ul RBC 3.23 L (4.20-5.40) M/uL Hgb 9.8 L (12.0-16.0) g/dl Hct 29.9 L (37.0-47.0) % MCV 92.6 (80.0-100.0) fL MCH 30.3 (25.0-34.0) pg MCHC 32.8 (32.0-36.0) g/dL RDW Std Deviation 43.2 (36.4-46.3) fL RDW Coeff of Izzy 12.7 (11.5-14.5) % Plt Count 221 (130-400) K/uL MPV 9.4 (9.4-12.4) fL Sodium 137 (136-145) mmol/L Potassium 4.4 (3.5-5.1) mmol/L Chloride 108 H (98-107) mmol/L Carbon Dioxide 27 (21-32) mmol/L Anion Gap 2 L (3-11) BUN 16 (6-23) mg/dl Creatinine 0.73 (0.6-1.2) mg/dl Est Cr Clr Drug Dosing 68.4 ml/min eGFR 86.78 BUN/Creatinine Ratio 21.9 H (10-20) Glucose 110 H (70-99(Fasting)) mg/dl Calcium 8.4 L (8.6-10.3) mg/dl
[2024-11-20] MEDS: dexAMETHasone 10 MG in SYRINGE 0 ML IV SCH (10:14)
--- NOTE | 2024-11-20 13:20 | Hospitalist Consultation ---
Date of Consultation November 20, 2024 Assessment & Plan (1) S/P total knee arthroplasty: Plan #Normal but lower end of normal blood pressureon chart review, she does not carry diagnosis of hypertension, it seems that she runs barely higher than this on most of her other visits, and given that she does have a degree of acute blood loss anemia as expected with this kind of surgery, it is not surprising that her blood pressures would run slightly lower than normal. Given that it is still a completely normal pressure/perfusing pressure, and given that she is totally asymptomatic, no intervention is needed and she appears safe for discharge. #Bradycardiano symptoms of arrhythmia, no weakness, no lightheadedness. She also gives a good history of regular exercise that would suggest her resting bradycardia would be expected. Given her abject lack of symptoms, no need for further workup at this time. Discussed what symptoms she should watch for if they were to develop, although highly doubt they will. Much like the blood pressure, her heart rate does not appear to require further workup or management and she appears safe for discharge from this perspective as well. #Acute blood loss anemiaexpected for this kind of surgery, no indication for transfusion at this time. Safe/stable for home from a medical perspective. Outpatient PCP follow-up. History of Present Illness Reason for Consultation: Lower end heart rate and blood pressure Attending Physician: Sebastián Miranda MD History of Present Illness patient is a very pleasant 74-year-old female who is postop from a total knee. She is doing well and was basically slated for going home today, her blood pressures have been in the 90s to 110s systolic and heart rate in the mid 40s to low 60s. We were asked to see for a medical evaluation because of this. On review of records, it appears she does not carry a diagnosis of hypertension and normally runs very normal blood pressure ranges. In discussion with the patient she is very active, her PCP notes also discussed a lot of cardiovascular exerciseshe notes that she takes very good care of herself and overall is young and healthy in spite of her birthday and in spite of her knee arthritis. She was walking in the hallway shortly before I saw her and denied any shortness of breath, lightheadedness, weakness, or dyspnea. Her only complaint was her leg feeling heavy which she expected given that she is postop from a knee replacement. Allergies Allergy/AdvReac Type Severity Reaction Status Date / Time No Known Drug Allergies Allergy Verified 11/19/24 08:03 Home Medications Medication Instructions Recorded Confirmed Type cholecalciferol (vitamin D3) 50 50 mcg PO QAM 03/30/22 11/19/24 History mcg (2,000 unit) capsule (Vitamin D3) acetaminophen 500 mg tablet 1,000 mg (2 x 500 mg) PO Q8 PRN 04/08/22 11/19/24 Rx (Tylenol Extra Strength) pain #30 tabs alendronate 70 mg tablet (Fosamax) 70 mg PO WK #12 tabs 02/26/24 11/19/24 Rx rosuvastatin 10 mg tablet 10 mg PO HS 04/04/24 11/19/24 History glucosamine-chondroitin 250 mg-200 1 tab PO DAILY 10/09/24 11/19/24 History mg tablet (Osteo Bi-Flex) ascorbic acid (vitamin C) 500 mg 500 mg PO BIDM 14 days #28 tabs 11/20/24 Rx tablet (Vitamin C) celecoxib 200 mg capsule (Celebrex) 200 mg PO BID 14 days #28 caps 11/20/24 Rx docusate sodium 100 mg capsule 100 mg PO BID 2 weeks #28 caps 11/20/24 Rx oxycodone 5 mg tablet 5 - 10 mg (1 - 2 x 5 mg) PO Q4H 11/20/24 Rx PRN pain #18 tabs Patient History Medical History Prolapse of female pelvic organs Pessary in place Dyslipidemia Bilateral knee pain Osteopenia History of COVID-19 (07/2023) Symptoms resolved Laryngopharyngeal reflux Rare No meds/no current issues Presence of pessary Surgical History S/P right knee arthroscopy Right knee arthroscopy, chondroplasty, loose body removal (04/08/22): LMA#4 at [facility] [place]/O wisdom tooth extraction History of colonoscopy Family History Mother Osteoporosis Cancer Sister Ovarian cancer Cancer Hypertension Father Cardiac disorder Hypertension Son Allergies Other No family history of adverse response to anesthesia Denies family history of Bleeding disorder Social History Smoking Status: Never smoker Second Hand Exposure: No; Do You Dip or Chew Tobacco: No; Tobacco Cessation Education Requested by Patient: No Hx Alcohol Use: Yes Alcohol type: wine Hx Substance Use: No Preferred Language: Burmese Communication Ability: Effective Shuttler Required: No Beliefs That Will Affect Care: None Current Living Situation: Spouse Other Information That Helps Us Care for You: No Feels Safe at Home: Yes Safety Concerns: Feels Safe At This Time Assistive Devices: Glasses Review of Systems Review of Systems: All systems reviewed & are unremarkable except as noted in HPI & below Physical Exam Physical Exam: In general she is awake alert oriented pleasant no distress. HEENT normocephalic atraumatic mucous membranes moist. Cardio is regular maybe slightly bradycardic no rubs murmurs or gallops. Lungs are clear to auscultation bilaterally no rales rhonchi or wheeze with good effort. Right lower extremity is wrapped. Neuro shows no focal deficits. Skin without rashes, pallor, or icterus. Labs and diagnostics noted. Results & Data Results & Data Vital Signs (Past 12 Hours) Vital Signs Temp Pulse Resp BP BP Pulse Ox O2 Del Method 11/20/24 07:46 98.1 F 56 L 16 106/69 95 Room Air 11/20/24 03:00 98.1 F 59 L 16 101/62 92 Room Air PG Care Time/CCT Total # of Minutes Spent Total Time Spent with Patient: Total time spent is greater than 50% in coordination of care (as documented) at patient's floor/unit and/or counseling patient: Coding Level of Care Code 35501 IN/OBS CONSULT LVL 3,45M Diagnoses S/P total knee arthroplasty Z96.659
--- NOTE | 2024-11-20 14:26 | Discharge Summary ---
Date of Service November 20, 2024 Admission HPI Per Admitting Provider Right knee end-stage arthritis undergoing right total knee arthroplasty with Dr. Miranda 11/19/2024 Principal Diagnosis s/p right total knee arthroplasty Discharge Exam Exam of her right lower extremity: The postoperative dressing is clean, dry and intact. Full ankle range of motion with normal strength. Distal sensation of her right foot is intact. Distal pulses are 2+. No significant distal edema. She is able to independently straight leg raise. No no pain in her right hip with logrolling. Hospitalist exam: In general she is awake alert oriented pleasant no distress. HEENT normocephalic atraumatic mucous membranes moist. Cardio is regular maybe slightly bradycardic no rubs murmurs or gallops. Lungs are clear to auscultation bilaterally no rales rhonchi or wheeze with good effort. Right lower extremity is wrapped. Neuro shows no focal deficits. Skin without rashes, pallor, or icterus. Labs and diagnostics noted. Bp stable at 106/69, Pulse stable at 56 Discharge Data Allergies Allergy/AdvReac Type Severity Reaction Status Date / Time No Known Drug Allergies Allergy Verified 11/19/24 08:03 Consultations 11/19/24 17:04 Consult Hospitalist Routine Procedures Performed Operation Date: 11/19/24 09:50 Actual Procedures p Right Total Knee Arthroplasty(Right) - Sebastián Miranda MD Ordered Studies 11/19/24 05:00 US - OR guided needle placemen Routine Hospital Course (1) Osteoarthritis of right knee: POD #1 s/p R TKA, doing as well as expected. Resume diet. WBAT with walker. OOB to chair. Continue pain control. H/H mildly low due to acute blood loss anemia. Asympotmatic. No need for blood transfusion at this time. DVT prophylaxis: TEDs 3 weeks, foot pumps while in hospital, ASA 81 mg BID for 6 weeks. PT/OT. D/C planning. Ice and elevate right lower extremity. Dressing to be changed POD 2-3 to Silverlon type dressing. Patient is scheduled for this as outpatient 11/21/24. Hospital consulted for hypotension and bradycardia, their consult below, patient was deemed safe for discharge from a medical and orthopedic standpoint #Normal but lower end of normal blood pressureon chart review, she does not carry diagnosis of hypertension, it seems that she runs barely higher than this on most of her other visits, and given that she does have a degree of acute blood loss anemia as expected with this kind of surgery, it is not surprising that her blood pressures would run slightly lower than normal. Given that it is still a completely normal pressure/perfusing pressure, and given that she is totally asymptomatic, no intervention is needed and she appears safe for discharge. #Bradycardiano symptoms of arrhythmia, no weakness, no lightheadedness. She also gives a good history of regular exercise that would suggest her resting bradycardia would be expected. Given her abject lack of symptoms, no need for further workup at this time. Discussed what symptoms she should watch for if they were to develop, although highly doubt they will. Much like the blood pressure, her heart rate does not appear to require further workup or management and she appears safe for discharge from this perspective as well. #Acute blood loss anemiaexpected for this kind of surgery, no indication for transfusion at this time. Safe/stable for home from a medical perspective. Outpatient PCP follow-up. Total Time Total Time Spent Total Time Spent (In Minutes): 20 Discharge Plan Discharge Items Patient Disposition: Home - Home Health Services Reason For Visit: Right Knee Osteoarthritis Discharge Diagnosis: s/p right total knee arthroplasty Activity: Per Instructions section Non-emergency contact: Surgeon Call non-emergency contact if: you have any medication questions, your symptoms worsen, your pain is not controlled, your temperature is above 101, your wound has increased redness and your wound has increased drainage Follow-up/Referrals: Alexander Villanueva PA-C [Physician Optical Design Engineer] - 11/21/24 2:30 pm Kareen Malagon DO [Primary Care Provider] - Diet: Regular Addtl Attending Provider Instructions: POST OPERATIVE DISCHARGE INSTRUCTIONS Pain Control Please take the follow medications for pain control, as well as icing and elevating your operative extremity. Pain after surgery is to be expected. We may not be able to take away all of your pain, but the goal is to make your pain manageable - Extra strength Tylenol 1,000mg (2 tabs) every 8 hours - Celebrex 200mg (1 tab) twice a day with food for 2 weeks - Oxycodone 5-10mg (1-2tabs) every 4-6 hours as needed - ASA 81 mg twice daily x 6 weeks after surgery. This is to prevent blood clots. DVT Prophylaxis With any surgery, you are at increased risk for blood clots. Please take the follow measures to prevent blood clots and read the warning signs to watch for. Please take the follow anticoagulant: Aspirin 81mg twice a day for 6 weeks If you were given LORENE compression stockings, these are to be worn on both legs for 18-20 hours daily for 2 weeks, or for 3 weeks for any lower extremity surgery. Warning signs: Calf pain, lower extremity swelling, numbness/tingling, skin discoloration, increased pain, shortness of breath, chest pain. Please contact our office if you experience any of these symptoms or call 911 if you are having trouble breathing. Ice Ice your operative site at least 5 times a day for 15-30 minutes at a time, for the first three days, then as needed. This will help to reduce swelling and pain. Make sure you have a thin cloth between the ice or cooling unit and your skin to prevent lopez bite. This is especially important if you received a nerve block. Diet/Nausea/Vomiting Start by drinking clear liquids and eating crackers. If you can tolerate this, then you may resume your normal diet. If you feel nauseated or vomit, take Zofran/ondansetron (if prescribed). Please call our office if you have intractable nausea or vomiting, or, if after hours, you may go to the Emergency Room for help. Surgical Dressing Please leave on any dressing until you are seen by either PT or PA for your post-operative appointment, unless you are otherwise instructed. If there are any issues with your dressing please give our office a call. Weight bearing, Range of Motion, Activity You will be weight bearing as tolerated on your operative site. you may use crutches or walker to assist in ambulation. Physical therapy You will do your rehab for the first two weeks with home health. Then you will begin outpatient physical therapy. It is very important you follow your rehab protocol and do your exercises as instructed by your provider and physical therapist. Wound care and showering We will inspect your wound at your first post-operative visit. It is normal to see some dried blood on the dressing. Do not remove your dressing, paper strips or sutures yourself unless otherwise instructed. Showering is allowed post op day 3. Do not scrub or remove any dressings, unless you are otherwise instructed. Once your dressing is changed in the office to the water-resistant dressing. You can shower with this on as long as all the edges are in tact. To promote wound healing, we recommend taking a multi-vitamin, or taking 500mg Vitamin C supplement twice a day for two weeks and 325mg Iron supplement twice a day for two weeks. This is especially important if you had a total joint replacement. Constipation Constipation is a common side effect of narcotic pain medication, dehydration after surgery and iron supplement (if you were instructed to begin that after surgery). We recommend purchasing an rdai-iwm-adzlhyx laxative such as Milk of Magnesia, Colace, Dulcolax, Miralax or Senna from a local pharmacy, and taking it as instructed. Stay hydrated and you may increase your fiber in your diet as well. Call our clinic if any questions. Driving You may not drive while taking narcotic pain medication or while in a cast, splint, sling or brace. Driving will be discussed at your first post op appointment Travel Avoid long distance travel (greater than 1 hour) in airplanes and cars for the first 6 weeks after surgery. Follow-up Please attend your post operative appointments as scheduled. At these appointments, we may do dressing change and remove any sutures/ailin/Zip-line 10-14 days after your surgery. If you do not know your post operative appointment dates or times please call the office at [phone] When to call the office It is normal to have swelling and bruising in the limb that was operated on. This will improve with time. It is also normal to have fevers for the first 2 days after surgery. Reasons you should call your doctor include: Uncontrolled pain; Nausea, vomiting, or constipation that does not improve with medication; Fevers over 101.5, chills, sweats; Drainage or bleeding from the wound; Foul odor; Spreading areas of redness; calf pain or swelling, shortness of breath, chest pain; Any other concerns You may call the office at [phone]. If it is a medical emergency please call 911. Pending Studies at Discharge: No Stand-Alone Forms: My [facility] Membersuite Medications and DC Order Prescriptions: New celecoxib [Celebrex] 200 mg Capsule 200 mg PO BID 14 Days Qty: 28 0RF docusate sodium 100 mg Capsule 100 mg PO BID 14 Days Qty: 28 0RF ascorbic acid (vitamin C) [Vitamin C] 500 mg Tablet 500 mg PO BIDM 14 Days Qty: 28 0RF Rx Instructions: take with iron supplement oxycodone 5 mg Tablet 5 - 10 mg PO Q4H PRN (Reason: pain) Qty: 18 0RF Rx Instructions: 5 mg for pain 1-5 10 mg for pain 6-10 ferrous gluconate 324 mg (38 mg iron) Tablet 324 mg PO BIDM 14 Days Qty: 28 0RF Rx Instructions: take with vitamin C aspirin 81 mg Tablet,Delayed Release (Dr/Ec) 81 mg PO BID 42 Days Qty: 84 0RF Continued alendronate [Fosamax] 70 mg tablet 70 mg PO WK Qty: 12 0RF Patient Comments: takes on monday am rosuvastatin 10 mg tablet 10 mg PO HS cholecalciferol (vitamin D3) [Vitamin D3] 50 mcg (2,000 unit) Capsule 50 mcg PO QAM acetaminophen [Tylenol Extra Strength] 500 mg tablet 1,000 mg PO Q8 PRN (Reason: pain) Qty: 30 0RF Held glucosamine-chondroitin [Osteo Bi-Flex] 250-200 mg Tablet 1 tab PO DAILY Hold Instructions: while on celebrex Rx Instructions: give after food/meal Admission Data Admit Date/Time: 11/19/24 12:50 Attending Provider: Sebastián Miranda Admit Provider: Sebastián Miranda Primary Care Provider: Kareen Malagon Other Providers: [facility],Home Healthcare; Ash Rodriguez Other Interventions: Discharge Summary Assessment (RN) Last Done: 11/20/24 10:05
== END 2024-11-20 15:06 | disposition home health service (06) ==
LOC: ASU 07:45 → 4W 07:45
DX: E78.5 Hyperlipidemia, unspecified; M17.11 Unilateral primary osteoarthritis, right knee; K21.9 Gastro-esophageal reflux disease without esophagitis; Z79.899 Other long term (current) drug therapy

== ENCOUNTER 2025-02-18 05:26 | Observation (INO) ==
--- NOTE | 2025-02-10 11:22 | Anesthesiology Consultation ---
Date of Service February 10, 2025 Assessment & Plan (1) Encounter for pre-operative examination: Chart Review Chart Review: Acceptable Risk for Surgery and Patient NOT seen in Pre Admission Testing - Outpatient joint assessment: Pt currently scheduled for inpatient pathway. If surgeon requests review for outpatient joint pathway, patient is an acceptable candidate for outpatient joint program from anesthesia standpoint pending surgeon's office assessment that patient is motivated, has good support and completes Same Day Joint Program preop requirements. Infectious Disease screening: Per PAT nursing assessment on 02/10/25, No known i nfectious disease contacts in past 10 days or current infectious disease symptoms. No recent travel outside the country. History Surgery Operation Date: 02/18/25 07:00 Proposed Procedures p Left Total Knee Arthroplasty - Sebastián Paulino Miranda MD Height/Weight Height: 5 ft 3.5 in Weight: 72.575 kg Allergies Allergy/AdvReac Type Severity Reaction Status Date / Time No Known Drug Allergies Allergy Verified 02/10/25 09:31 Medications Home Medications Medication Instructions Recorded Confirmed Last Taken cholecalciferol (vitamin D3) 50 50 mcg PO DAILY 03/30/22 02/10/25 11/18/24 08:00 mcg (2,000 unit) capsule (Vitamin D3) acetaminophen 500 mg tablet 1,000 mg (2 x 500 mg) PO Q8 PRN 04/08/22 02/10/25 Unknown (Tylenol Extra Strength) pain #30 tabs rosuvastatin 10 mg tablet 10 mg PO HS 04/04/24 02/10/25 11/18/24 20:00 oxycodone 5 mg tablet 5 - 10 mg (1 - 2 x 5 mg) PO Q4H 11/20/24 02/10/25 Unknown PRN pain #18 tabs alendronate 70 mg tablet (Fosamax) 70 mg PO WK #12 tabs 12/10/24 02/10/25 Unknown Past Medical History Medical History (Updated 02/10/25 @ 11:54 by Mary Melgar PA-C) Dyslipidemia History of COVID-19 (07/2023) Symptoms resolved Laryngopharyngeal reflux Rare No meds/no current issues Osteoarthritis Osteopenia Presence of pessary Prolapse of female pelvic organs Pessary in place Past Family History Family History Mother Osteoporosis Cancer Sister Ovarian cancer Cancer Hypertension Father Cardiac disorder Hypertension Son Allergies Other No family history of adverse response to anesthesia Denies family history of Bleeding disorder Past Surgical History Surgical History (Updated 02/10/25 @ 11:54 by Mary Melgar PA-C) H/O wisdom tooth extraction History of colonoscopy History of total knee arthroplasty R TKA 11/19/24: [facility] (pt stayed overnight for OBS as planned; had acute blood loss anemia that did not require transfusion and slight hypotension) S/P right knee arthroscopy Right knee arthroscopy, chondroplasty, loose body removal (04/08/22): LMA#4 at [facility] [place] Social History Smoking Status: Never smoker Do You Dip or Chew Tobacco: No Hx Alcohol Use: Yes Alcohol type: wine alcohol intake frequency: a few times a week Hx Substance Use: No substance use type: does not use Lab Results Anesthesia Preop Results Results Anesthesia Widget: WBC 6.45 K/ul (4.8-10.8) 02/07/25 Hgb 12.5 g/dl (12.0-16.0) 02/07/25 Hct 37.8 % (37.0-47.0) 02/07/25 Plt 279 K/uL (130-400) 02/07/25 Na 138 mmol/L (136-145) 02/07/25 K 4.6 mmol/L (3.5-5.1) 02/07/25 Cl 103 mmol/L (98-107) 02/07/25 CO2 29 mmol/L (21-32) 02/07/25 BUN 13 mg/dl (6-23) 02/07/25 Creat 0.67 mg/dl (0.6-1.2) 02/07/25 Glucose Level 100 mg/dl (70-99(Fasting)) H 02/07/25 PT 11.1 Seconds (9.0-12.0) 02/07/25 PTT 26 Seconds (21-31) 02/07/25 INR 1.0 (0.9-1.1) 02/07/25 Blood Type B Positive 02/07/25 Antibody Screen NEGATIVE 02/07/25 Testing Electrocardiogram Date: 10/18/24 Findings: + NSR @ (65bpm) Chest X-Ray Date: 10/18/24 Findings: + NAD
[2025-02-18] MEDS: LR 500ML BOLUS, THEN 15ML/HR IV SCH (05:45)
[2025-02-18] MEDS: ACETAMINOPHEN 500 MG TAB PO SCH (05:52)
[2025-02-18] MEDS: CeleBREX 200 MG CAP PO SCH ×2 (05:52→20:26)
[2025-02-18] MEDS: LR 60ML/HR IV SCH (05:53)
[2025-02-18] MEDS ORDERED: BUPIVACAINE 0.5 % 5 MG/1 ML PF 10ML VIAL ONE (06:19)
[2025-02-18] MEDS ORDERED: BUPIVACAINE 0.25% PF 30 ML VIAL ONE (06:19)
[2025-02-18] MEDS ORDERED: ONDANSETRON INJ 2 MG/ML 2 ML VIAL IV PRN ×2 (06:29→11:16)
[2025-02-18] MEDS ORDERED: ATROPINE SULFATE 0.1 MG/ML 10ML SYR IV PRN (06:29)
--- NOTE | 2025-02-18 06:37 | History & Physical Bridge Note ---
Date of Service February 18, 2025 History & Physical Bridge Note I have examined the patient, reviewed the History & Physical and in the interval since the performance of the History & Physical I have noted the following changes of clinical significance: no changes noted
[2025-02-18] MEDS ORDERED: MIDAZOLAM HCL 1 MG/ML 2ML VIAL ONE ×2 (06:43→08:48)
[2025-02-18] MEDS ORDERED: PROPOFOL IV EMULSION 10 MG/ML 100 ML VIAL IV ONE (06:45)
[2025-02-18] MEDS: TRANEXAMIC ACID 1,000 MG **IV Pre-op IV SCH (06:47)
[2025-02-18] MEDS ORDERED: DEXAMETHASONE SOD INJ 4 MG/ML VIAL ONE (07:12)
[2025-02-18] MEDS ORDERED: ONDANSETRON INJ 2 MG/ML 2 ML VIAL ONE (07:12)
[2025-02-18] MEDS: ROPIV 0.5% 246mg, Ketorolac 30mg, EPINEPHrine 0.5mg in NSS INFIL SCH (07:44)
[2025-02-18] MEDS: ORTHO JOINT ANESTHETIC ONE (07:47)
[2025-02-18] MEDS ORDERED: ePHEDrine sulfate 50 MG/5 ML SYR ONE (08:05)
[2025-02-18] MEDS ORDERED: KETOROLAC 30 MG/ML VIAL ONE (08:48)
--- NOTE | 2025-02-18 10:03 | Post Operative Brief Note ---
Immediate Post Op Note Date of Surgery February 18, 2025 Pre & Post Diagnosis Operation Date: 02/18/25 07:00 Pre-Op Diagnosis: Left Knee Osteoarthritis Post-Op Diagnosis: Left Knee Osteoarthritis I identified the patient and participated in the time-out.: Yes Procedure Operation Date: 02/18/25 07:00 Actual Procedures p Left Total Knee Arthroplasty(Left) - Sebastián Miranda MD Surgeon Sebastián Miranda MD Direct Sales Representative Keo Rodriguez PA-C (No fellow avail) Estimated Blood Loss 50 Findings Consistent with Post-Op Diagnosis Fluids 1200 cc Specimens Left knee contents Anesthesia Type MAC Spinal Regional Complications none
--- NOTE | 2025-02-18 10:04 | Operative Report ---
Post Operative Report Pre & Post Diagnosis Operation Date: 02/18/25 07:00 Pre-Op Diagnosis: Left Knee Osteoarthritis Post-Op Diagnosis: Left Knee Osteoarthritis I identified the patient and participated in the time-out.: Yes Procedure Operation Date: 02/18/25 07:00 Actual Procedures p Left Total knee replacement, imageless computer assisted navigation (Left) - Sebastián Miranda MD Surgeon Sebastián Miranda MD Energy Operations Vice President Keo Rodriguez PA-C (No fellow avail) Estimated Blood Loss 50 Findings See Below Examined Under Anesthesia: ROM -- There was 5 degrees to 120 degrees of flexion Ligamentous examination -- revealed stable Jess, posterior drawer, varus and valgus stress at 5 and 30 degrees. Outerbridge Grade IV changes of Patellofemoral & Medial compartments, Grade II- III changes Lateral compartment. Multiple small loose bodies. The synovium was inflamed, purple discoloration. Fluids 1200 cc Specimens Left knee contents Anesthesia Type MAC Spinal Regional Complications none Indications This is a 74-year-old female who has clinical and radiographic findings consistent with osteoarthritis of the a left knee. I recommended that a left total knee replacement be performed. The patient understands the risks of surgery, which include but not limited to: bleeding, infection, re-operation, damage to nerves and arteries, continued knee pain, knee stiffness, DVT, and . The patient understands all these instructions and explanations, all his questions have been satisfactorily addressed, and the patient has elected to proceed. Informed consent was signed. Description of Procedure IMPLANTS: 1. Femur: Triathlon #4 Left PS, with distal pegs. 2. Tibia: Triathlon #3 Candor with 12 x 50 mm stem. 3. Insert: Triathlon #3 x 16 mm PS X3 poly. 4. Patella: Triathlon A29 x 9 mm X3 poly. 5. Palacos cement. Keo Rodriguez PA-C is assisting with positioning, retracting, and closure due to fellow not available. Procedure: The patient was taken to the Operating Room and placed in the supine position after spinal and adductor canal nerve block was administered. My initials and a multidisciplinary time-out were used to identify the left leg as the correct operative limb. A tourniquet was placed high on the thigh. Prior to the incision, 2 grams of intravenous Ancef were given. One g of TXA was given pre-operatively and another after the tourniquet was released. The left leg was then prepped and draped in a standard sterile fashion. An Esmarch was used to exsanguinate the leg, and the tourniquet was inflated to 250 mmHg. The planned mid-line 20 cm incision was created exposing the extensor mechanism. The medial parapatellar arthrotomy was made and the patella was everted. The patella was addressed first. It was prepared by reaming from 19 mm down to 12 mm. An A29 button was found to fit best. The peg holes were made in the standard fashion. The femur was addressed next and using computer assisted OrthoAlign with 3 degrees of flexion and 0 degrees of valgus, removing 10 mm in the standard fashion for the distal cut. The cut was made and after making the Tibial cut and checking the balancing using OrthoAlign Lantern, Flexion/Extension gap 7 mm laterally & 5 mm medially. The Lantern was set to 6 which was similar, but 1mm lower, to the posterior referencing guide. The 4-in-1 cutting block for a size 4 femur was placed. These cuts and the cuts to place the box were made in the standard fashion. The distal pegs were created after testing knee stability with trial components in and using the trial femur as a guide in the standard fashion. The tibia cut with using imageless computer assisted OrthoAlign, taking 2 mm from the medial low side. A #3 Tibial baseplate fit well. A trial with a 16 mm spacer showed excellent stability in both flexion and extension, with good ligament balance, and thumbs free patellar tracking. Range of motion of 0-130 degrees. The tibial baseplate was prepped for the keel and stem. A stem was used due to some areas of soft bone, to avoid subsidence. All components were removed. 90 ml of total knee cocktail were injected into the soft tissues and periosteum. All surfaces were copiously irrigated prior to placement of the components. The Tibial baseplate followed by femoral component were cemented in place and a 16mm trial placed. Next, the patellar button was placed using the same cement. Once the cement had cured, the range of motion and stability were unchanged. The 16 mm X3 poly was placed. Again, the range of motion and stability were unchanged. The tourniquet was deflated. Hemostasis was obtained. Another 1g TXA was given. The extensor mechanism was closed with 1-0 Vicryl and 0 Stratafix with the knee bent approximately 60 degrees in a standard fashion. The peritenon and deep fascia was closed with 2-0 Vicryl. The subcutaneous layer was closed with 3-0 Vicryl. The skin was closed with Zipline and shield. The limb was cleaned and dried. 4x4 dressing was placed over top followed by ABDs, sterile Webril, and a foot to thigh Yair bandage. The patient was then transferred to the Recovery Room in stable condition. The sponge and needle counts were correct. POST-OP INSTRUCTIONS: The patient will be WBAT. The patient will be admitted to the hospital. Complete 24-hour course antibiotics. Labs will be obtained during the stay. DVT prophylaxis will include aspirin for 6 weeks, TEDs, and mechanical foot pumps. The dressing will be changed, postop day #2-3, and covered with a Tiana verlon dressing. I attest to the content of the Intraoperative Record and any orders documented therein. Any exceptions are noted below.
--- NOTE | 2025-02-18 10:18 | Operative Report ---
Post Operative Report Pre & Post Diagnosis Operation Date: 02/18/25 07:00 Pre-Op Diagnosis: Left Knee Osteoarthritis Post-Op Diagnosis: Left Knee Osteoarthritis I identified the patient and participated in the time-out.: Yes Procedure Operation Date: 02/18/25 07:00 Actual Procedures p Left Total Knee Arthroplasty(Left) - Sebastián Paulino Miranda MD Surgeon Dr Miranda Sack Repairer Keo Rodriguez PA-C (No fellow avail) Estimated Blood Loss 50 Findings Consistent with Post-Op Diagnosis Specimens none Description of Procedure Pt was taken to operating room and properly positioned for procedure. Refer to anesthesia's note for anesthesia used. Pt was given pre-op antibiotics. Prepped and draped in sterile fashion. I was present during the entire case and assisted with positioning, instrumentation, closure and dressings. Please see surgeon's op report for further detail. Pt was awake and transferred to PACU in stable condition I attest to the content of the Intraoperative Record and any orders documented therein. Any exceptions are noted below.
--- NOTE | 2025-02-18 10:41 | XRay Report ---
XR knee LT 1 or 2V routine CLINICAL HISTORY: Surgical Post Op COMPARISON: Preoperative study dated 02/07/2025 FINDINGS: There is evidence for interval total left knee arthroplasty and patellar resurfacing. Ther e is air within the soft tissues consistent with recent surgery. The femoral and tibial components ap pear well seated. IMPRESSION: Postsurgical changes of a total left knee arthroplasty. No complicating features identifi ed. ACT 112: Negative or not required by law. Electronically signed by: Rikki Amaya M.D. 02/18/2025 10:40 AM
[2025-02-18] MEDS ORDERED: NALOXONE HCL 0.4 MG/1 ML VIAL/CARP IV PRN (11:16)
[2025-02-18] MEDS ORDERED: HYDROmorphone INJ 0.5 MG/0.5 ML SYR IV PRN (11:16)
[2025-02-18] MEDS ORDERED: METOCLOPRAMIDE HCL INJ 5 MG/ML 2 ML VIAL IV PRN (11:16)
[2025-02-18] MEDS ORDERED: diphenhydrAMINE Capsule 25 MG CAP PO PRN (11:16)
[2025-02-18] MEDS ORDERED: MAGNESIUM HYDROXIDE SUSP 30 ML UDC PO PRN (11:16)
--- NOTE | 2025-02-18 11:28 | Hospitalist Consultation ---
Date of Consultation February 18, 2025 Assessment & Plan (1) S/P total knee arthroplasty: Plan This is a 74 year old female with past medical history of OA and osteopenia who presented to the hospital on 02/18/2025 for a left total knee repair with Dr. Miranda. #s/p Total Knee arthroplasty. s/p Left TKA w/ Dr. Miranda on 02/18. Pain management, bowel regimen, and DVT prophylaxis per the primary team. On Cefazolin postoperatively. On last hospital stay for Right TKA patient was w/ mildly low BP & bradycardia but was without symptoms. She has a hx of regular exercise that would suggest resting bradycardia. Will continue to monitor vital signs but does likely not require a further workup if it reoccurs this hospital stay unless she were to become symptomatic. PT/OT consulted. AM CBC, BMP. #HLD - continue Rosuvastatin #Osteopenia - hold Alendronate while inpatient. Code: full Case was discussed with Dr. Dias at time of consultation. Thank you for this consult, we will continue to follow along. Please reach out to us with any questions or concerns. Supervising Physician Co-Signing Physician Notes Attending Attestation & Consult Note: Pt seen/examined, chart reviewed, consult care plan d/w BRODY Whitmore. I agree w/ the bravo components of her consult documentation except - surgery today was left total knee replacement (not repair). 74yo female with history of hyperlipidemia, GERD, prior right TKR. Ms Reyes presented today for elective left TKR by Dr Sebastián Miranda, [facility]. EBL was minimal - 50ml. I saw her on the orthopedic floor post-op and she was sitting in a chair comfortably; was at bedside. She was feeling well. No chest pain, dyspnea, nausea, emesis, abd pain. Mild left knee pain only. PMH/PSH/allergies/meds/sochx - reviewed VSS, afebrile gen - sitting in chair, NAD, pleasant mouth - MMM neck - no JVD heart - RRR, s1 s2, no murmur lungs - CTA b/l abd - soft NT ND BS+ ext - left knee wrapped in dressings; pulses b/l feet 2+ A/P: 1. s/p LEFT TKR by Dr Miranda 2. hyperlipidemia - cont statin 3. DVT proph - defer selection to primary orthopedics, but it appears they will be utilizing asa 81mg BID 4. GERD - it does not appear she takes any medicine for this chronically; add PPI or H2 jermaine if needed Clifford Dias MD History of Present Illness Reason for Consultation: post-op medical management Requesting Physician: Sebastián Miranda MD Attending Physician: Sebastián Miranda MD History of Present Illness This is a 74 year old female with past medical history of OA and osteopenia who presented to the hospital on 02/18/2025 for a left total knee repair with Dr. Miranda. Marilynn was seen and examined this morning with her at bedside. She reports her surgery went well. She denied CP, SOB, abdominal pain, nausea or vomiting. States she had her right knee replaced in November and did well with therapy following it. She denies any cardiac PMHx. Allergies Allergy/AdvReac Type Severity Reaction Status Date / Time No Known Drug Allergies Allergy Verified 02/22/25 18:13 Home Medications Medication Instructions Recorded Confirmed Type cholecalciferol (vitamin D3) 50 50 mcg PO DAILY 03/30/22 02/22/25 History mcg (2,000 unit) capsule (Vitamin D3) rosuvastatin 10 mg tablet 10 mg PO HS 04/04/24 02/22/25 History alendronate 70 mg tablet (Fosamax) 70 mg PO WK #12 tabs 12/10/24 02/22/25 Rx acetaminophen 500 mg tablet 1,000 mg (2 x 500 mg) PO Q8 PRN 02/19/25 02/22/25 Rx (Tylenol Extra Strength) pain #30 tabs ascorbic acid (vitamin C) 500 mg 500 mg PO BIDM #30 tabs 02/19/25 02/22/25 Rx tablet (Vitamin C) aspirin 81 mg tablet,delayed 81 mg PO BID #30 tabs 02/19/25 02/22/25 Rx release celecoxib 200 mg capsule (Celebrex) 200 mg PO BID 14 days #28 caps 02/19/25 02/22/25 Rx docusate sodium 100 mg capsule 100 mg PO BID #30 caps 02/19/25 02/22/25 Rx ferrous gluconate 324 mg (38 mg 324 mg PO BIDM #30 tabs 02/19/25 02/22/25 Rx iron) tablet oxycodone 5 mg tablet 5 - 10 mg (1 - 2 x 5 mg) PO Q4H 02/19/25 02/22/25 Rx PRN pain #18 tabs pantoprazole 40 mg tablet,delayed 40 mg PO DAILY 30 days #30 tabs 02/22/25 Rx release Patient History Medical History (Updated 02/22/25 @ 22:11 by RAMON QuiñonezC) Osteoarthritis Prolapse of female pelvic organs Pessary in place Dyslipidemia Osteopenia History of COVID-19 (07/2023) Symptoms resolved Laryngopharyngeal reflux Rare No meds/no current issues Presence of pessary Surgical History History of total knee arthroplasty R TKA 11/19/24: [facility] (pt stayed overnight for OBS as pl anned; had acute blood loss anemia that did not require transfusion and slight hypotension) S/P right knee arthroscopy Right knee arthroscopy, chondroplasty, loose body removal (04/08/22): LMA#4 at [facility] H/O wisdom tooth extraction History of colonoscopy Family History Mother Osteoporosis Cancer Sister Ovarian cancer Cancer Hypertension Father Cardiac disorder Hypertension Son Allergies Other No family history of adverse response to anesthesia Denies family history of Bleeding disorder Social History Smoking Status: Never smoker Second Hand Exposure: No; Do You Dip or Chew Tobacco: No; Hx Alcohol Use: Yes Alcohol type: wine Hx Substance Use: No Preferred Language: Divehi Communication Ability: Effective 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 Required: No Beliefs That Will Affect Care: None Current Living Situation: Spouse Feels Safe at Home: Yes Assistive Devices: Glasses and Walker Physical Exam Constitutional: WD/WN, vitals as above Eyes: PERRL, conjunctivae normal, anicteric sclerae Respiratory: normal respiratory effort, lungs clear to auscultation Cardiovascular: RRR, no murmur, no edema Gastrointestinal (Abdomen): normal bowel sounds, soft, nontender, no hepatosplenomegaly Neurologic: PERRL, EOMI, accommodation nl, no face palsy, no dysarthria Psychiatric: A+Ox3, euthymic affect Results & Data Results & Data Vital Signs (Past 12 Hours) Vital Signs Temp Pulse Pulse Resp BP BP Pulse Ox 02/18/25 11:16 36.4 C L 58 L 16 119/65 99 02/18/25 10:55 36.4 C L 65 19 119/60 100 02/18/25 10:45 63 19 112/56 L 98 02/18/25 10:35 67 20 112/58 L 95 02/18/25 10:25 69 21 110/57 L 97 02/18/25 10:16 36 C L 72 14 84/53 L 99 02/18/25 05:44 36.8 C 75 18 118/81 97 O2 Del Method O2 Flow Rate 02/18/25 11:16 Room Air 02/18/25 10:55 Room Air 02/18/25 10:45 Room Air 02/18/25 10:35 Room Air 02/18/25 10:25 Oxymask 5 02/18/25 10:16 Oxymask 5 02/18/25 05:44 Room Air PG Care Time/CCT Total # of Minutes Spent Total Time Spent with Patient: Total time spent is greater than 50% in coordination of care (as documented) at patient's floor/unit and/or counseling patient: Coding Level of Care Code 97837 IN/OBS CONSULT LVL 2,35M Diagnoses S/P total knee arthroplasty Z96.659
[2025-02-18] MEDS: SODIUM CHLORIDE 0.9% 1,000 ML IV SCH (11:47)
--- NOTE | 2025-02-18 13:39 | Anesthesiology Progress Note ---
Date of Service February 18, 2025 Anesthesia Post Procedure Vital Signs Vital Signs: Temp Pulse Pulse Resp BP BP Pulse Ox 02/18/25 13:34 36.5 C 67 16 98/58 L 99 02/18/25 12:22 36.4 C L 75 16 101/56 L 99 02/18/25 11:42 36.4 C L 58 L 16 107/69 100 02/18/25 11:16 36.4 C L 58 L 16 119/65 99 02/18/25 10:55 36.4 C L 65 19 119/60 100 02/18/25 10:45 63 19 112/56 L 98 02/18/25 10:35 67 20 112/58 L 95 02/18/25 10:25 69 21 110/57 L 97 02/18/25 10:16 36 C L 72 14 84/53 L 99 02/18/25 05:44 36.8 C 75 18 118/81 97 O2 Del Method O2 Flow Rate 02/18/25 13:34 Room Air 02/18/25 12:22 Room Air 02/18/25 11:42 Room Air 02/18/25 11:16 Room Air 02/18/25 10:55 Room Air 02/18/25 10:45 Room Air 02/18/25 10:35 Room Air 02/18/25 10:25 Oxymask 5 02/18/25 10:16 Oxymask 5 02/18/25 05:44 Room Air Transfer of Care Handoff Completed per policy Notes Mental Status: alert / awake / arousable and participated in evaluation Patient Amnestic to Procedure: Yes Nausea / Vomiting: adequately controlled Pain: adequately controlled Airway Patency, RR, SpO2: stable & adequate BP & HR: stable & adequate Hydration State: stable & adequate Neuraxial Anesthesia: was administered and sensory block is resolving Anesthetic Complications: no major complications apparent and Pt Satisfied with anesthetic care
[2025-02-18] MEDS: FERROUS GLUCONATE 324 MG TAB PO SCH (17:03)
[2025-02-18] MEDS: ASCORBIC ACID 500 MG TAB PO SCH (17:03)
--- NOTE | 2025-02-18 17:22 | Orthopedic Progress Note ---
Date of Service February 18, 2025 Assessment & Plan (1) Osteoarthritis of left knee: Plan: POD #0 s/p L TKA, doing as well as expected. Resume diet. WBAT with walker. OOB to chair. Continue pain control. Check labs tomorrow. DVT prophylaxis: TEDs 3 weeks, foot pumps while in hospital, ASA 81 mg BID for 6 weeks. PT/OT. D/C planning. Dressing to be changed POD 2-3 to Silverlon type dressing. Admission and Anticipated Discharge Date Admission Date: February 18, 2025 Subjective Doing well, block is wearing off Physical Exam Physical Exam: LLE: BCR < 2 sec. Sensation to light touch intact distally. Wiggling toes and ankle. Able to raise heel off bed. Dressing clean, dry, intact. Results & Data Vital Signs (Past 12 Hours) Vital Signs Temp Pulse Pulse Resp BP BP Pulse Ox 02/18/25 15:31 36.6 C 60 16 107/72 97 02/18/25 14:27 36.3 C L 66 16 95/60 L 95 02/18/25 13:34 36.5 C 67 16 98/58 L 99 02/18/25 12:22 36.4 C L 75 16 101/56 L 99 02/18/25 11:42 36.4 C L 58 L 16 107/69 100 02/18/25 11:16 36.4 C L 58 L 16 119/65 99 02/18/25 10:55 36.4 C L 65 19 119/60 100 02/18/25 10:45 63 19 112/56 L 98 02/18/25 10:35 67 20 112/58 L 95 02/18/25 10:25 69 21 110/57 L 97 02/18/25 10:16 36 C L 72 14 84/53 L 99 02/18/25 05:44 36.8 C 75 18 118/81 97 O2 Del Method O2 Flow Rate 02/18/25 15:31 Room Air 02/18/25 14:27 Room Air 02/18/25 13:34 Room Air 02/18/25 12:22 Room Air 02/18/25 11:42 Room Air 02/18/25 11:16 Room Air 02/18/25 10:55 Room Air 02/18/25 10:45 Room Air 02/18/25 10:35 Room Air 02/18/25 10:25 Oxymask 5 02/18/25 10:16 Oxymask 5 02/18/25 05:44 Room Air Diagnostic Findings Impressions Knee X-Ray 02/18/25 10:25 XR knee LT 1 or 2V routine CLINICAL HISTORY: Surgical Post Op COMPARISON: Preoperative study dated 02/07/2025 FINDINGS: There is evidence for interval total left knee arthroplasty and patellar resurfacing. There is air within the soft tissues consistent with recent surgery. The femoral and tibial components appear well seated. IMPRESSION: Postsurgical changes of a total left knee arthroplasty. No complicating features identified. ACT 112: Negative or not required by law. Electronically signed by: Rikki Amaya M.D. 02/18/2025 10:40 AM
[2025-02-18] MEDS: ROSUVASTATIN CALCIUM 10 MG TAB PO SCH (20:26)
[2025-02-18] MEDS: DOCUSATE SODIUM 100 MG CAP PO SCH (20:26)
[2025-02-18] MEDS: SENNA 8.6 MG TAB PO SCH (20:26)
[2025-02-19] MEDS: ACETAMINOPHEN 500 MG TAB PO PRN (01:35)
[2025-02-19 05:43] VITALS: TEMP 98.4
[2025-02-19 07:11] VITALS: RESP 16; O2SAT 95
[2025-02-19 07:24] LABS: Hematocrit (blood only) 30.7 % (37.0-47.0); Hemoglobin 10.2 g/dl (12.0-16.0); Mean Corpuscular Hemoglobin 30.1 pg (25.0-34.0); Mean Corpuscular Volume 90.6 fL (80.0-100.0); Platelet Count 214 K/uL (130-400); RDW Standard Deviation 41.2 fL (36.4-46.3); Red Blood Count 3.39 M/uL (4.20-5.40); White Blood Count 10.90 K/ul (4.8-10.8)
[2025-02-19 07:39] LABS: Anion Gap 5.0 (3-11); Blood Urea Nitrogen 17.0 mg/dl (6-23); Calcium 9.1 mg/dl (8.6-10.3); Carbon Dioxide 27.0 mmol/L (21-32); Chloride 108.0 mmol/L (98-107); Creatinine Clr Calc Pharmacy 69.3 ml/min; Glucose 108.0 mg/dl (70-99(Fasting)); Potassium 4.3 mmol/L (3.5-5.1); Sodium 140.0 mmol/L (136-145)
--- NOTE | 2025-02-19 08:05 | Orthopedic Progress Note ---
Date of Service February 19, 2025 Assessment & Plan (1) Osteoarthritis of left knee: Plan: POD #1 s/p L TKA, doing as well as expected. Resume diet. WBAT with walker. OOB to chair. Continue pain control. Check labs tomorrow. DVT prophylaxis: TEDs 3 weeks, foot pumps while in hospital, ASA 81 mg BID for 6 weeks. PT/OT. D/C planning. Dressing to be changed POD 1-3 to Silverlon type dressing, if incision is dry. Admission and Anticipated Discharge Date Admission Date: February 18, 2025 Subjective Doing well, only has some discomfort in the distal quad when up with the walker. Physical Exam Physical Exam: Sitting comfortably in a chair. LLE: BCR < 2 sec. Sensation to light touch intact distally. Wiggling toes and ankle. Dressing clean, dry, intact. Results & Data Vital Signs (Past 12 Hours) Vital Signs Temp Pulse Pulse Resp BP Pulse Ox O2 Del Method 02/19/25 07:09 36.9 C 68 16 118/66 95 Room Air 02/19/25 04:05 36.9 C 74 14 115/66 99 Room Air 02/18/25 23:27 36.7 C 71 14 95/49 L 98 Room Air 02/18/25 20:14 36.9 C 64 12 120/67 98 Room Air Laboratory Results Laboratory Results WBC 10.90 K/ul (4.8-10.8) H 02/19/25 06:34 RBC 3.39 M/uL (4.20-5.40) L 02/19/25 06:34 Hgb 10.2 g/dl (12.0-16.0) L 02/19/25 06:34 Hct 30.7 % (37.0-47.0) L 02/19/25 06:34 MCV 90.6 fL (80.0-100.0) 02/19/25 06:34 MCH 30.1 pg (25.0-34.0) 02/19/25 06:34 MCHC 33.2 g/dL (32.0-36.0) 02/19/25 06:34 RDW Std Deviation 41.2 fL (36.4-46.3) 02/19/25 06:34 RDW Coeff of Izzy 12.4 % (11.5-14.5) 02/19/25 06:34 Plt Count 214 K/uL (130-400) 02/19/25 06:34 MPV 9.6 fL (9.4-12.4) 02/19/25 06:34 Sodium 140 mmol/L (136-145) 02/19/25 06:34 Potassium 4.3 mmol/L (3.5-5.1) 02/19/25 06:34 Chloride 108 mmol/L (98-107) H 02/19/25 06:34 Carbon Dioxide 27 mmol/L (21-32) 02/19/25 06:34 Anion Gap 5 (3-11) 02/19/25 06:34 BUN 17 mg/dl (6-23) 02/19/25 06:34 Creatinine 0.71 mg/dl (0.6-1.2) 02/19/25 06:34 Est Cr Clr Drug Dosing 69.3 ml/min 02/19/25 06:34 eGFR 89.72 02/19/25 06:34 BUN/Creatinine Ratio 23.9 (10-20) H 02/19/25 06:34 Glucose 108 mg/dl (70-99(Fasting)) H 02/19/25 06:34 Calcium 9.1 mg/dl (8.6-10.3) 02/19/25 06:34 Impressions Knee X-Ray 02/18/25 10:25 XR knee LT 1 or 2V routine CLINICAL HISTORY: Surgical Post Op COMPARISON: Preoperative study dated 02/07/2025 FINDINGS: There is evidence for interval total left knee arthroplasty and patellar resurfacing. There is air within the soft tissues consistent with recent surgery. The femoral and tibial components appear well seated. IMPRESSION: Postsurgical changes of a total left knee arthroplasty. No complicating features identified. ACT 112: Negative or not required by law. Electronically signed by: Rikki Amaya M.D. 02/18/2025 10:40 AM
[2025-02-19] MEDS: dexAMETHasone 10 MG in SYRINGE 0 ML IV SCH (08:06)
[2025-02-19] MEDS: ASPIRIN 81 MG ECTAB PO SCH (08:07)
[2025-02-19] MEDS: MULTIVITAMIN TAB PO SCH (08:07)
[2025-02-19] MEDS: CHOLECALCIFEROL 25 MCG (1000 UNITS) TAB PO SCH (08:07)
--- NOTE | 2025-02-19 08:14 | Discharge Summary ---
Date of Service February 19, 2025 Principal Diagnosis Status post left total knee arthroplasty Discharge Data Allergies Allergy/AdvReac Type Severity Reaction Status Date / Time No Known Drug Allergies Allergy Verified 02/18/25 05:25 Consultations 02/18/25 11:16 Consult Hospitalist Routine Procedures Performed Operation Date: 02/18/25 07:00 Actual Procedures p Left Total Knee Arthroplasty(Left) - Sebastián Miranda MD Hospital Course (1) Osteoarthritis of left knee: Marilynn Reyes is a 74-year-old female who underwent an uncomplicated left total knee arthroplasty with Dr. Miranda on 02/18/2025. She was admitted to the hospital overnight for observation. She received IV Ancef postoperatively. Her pain was controlled in the hospital and she did not have any adverse events. Postoperative x-ray demonstrated appropriate findings with no concerning findings. Patient's vitals remained stable the following day after surgery. Postoperative lab work showed a mild anemia with a hemoglobin of 10.2 likely secondary to acute blood loss from surgery. White blood cell count slightly elevated 10.9 likely secondary to the stress of surgery and steroids. Patient participated with PT and OT the following morning who felt that she was stable to return home with home health/home PT. Patient was seen by Dr. Miranda postop day 1. Patient will be discharged home postop day 1 on 02/19/2025. She will use Tylenol, Celebrex, and oxycodone for pain control. Prescriptions were sent to her pharmacy. She was instructed to take iron and vitamin C twice daily for the first 2 weeks postoperatively. Stool softeners and laxatives as needed if any constipation develops. Ice and elevation per instructions. Ambulate with walker for stability at all times. DVT prophylaxis with aspirin 81 mg twice daily for 6 weeks. LORENE stockings bilaterally for 3 weeks. She is scheduled for a dressing change appointment tomorrow in the office. She will leave the dressing in place until that appointment. Patient will contact our clinic with any questions or concerns. Total Time Total Time Spent Total Time Spent (In Minutes): 20 Discharge Plan Discharge Items Patient Disposition: Home - Home Health Services Reason For Visit: Left Knee Osteoarthritis Discharge Diagnosis: s/p left total knee arthroplasty Activity: Per Instructions section Non-emergency contact: Surgeon Call non-emergency contact if: you have any medication questions, your temperature is above 101.5, your wound has increased redness, your wound has increased drainage and your wound pain has increased Follow-up/Referrals: Merry Rodriguez PA-C [Physician Claim Attorney] - 02/20/25 8:45 am Kareen Malagon DO [Primary Care Provider] - Diet: Regular Addtl Attending Provider Instructions: POST OPERATIVE DISCHARGE INSTRUCTIONS Pain Control Please take the follow medications for pain control, as well as icing and e levating your operative extremity. Pain after surgery is to be expected. We may not be able to take away all of your pain, but the goal is to make your pain manageable - Extra strength Tylenol 1,000mg (2 tabs) every 8 hours - Celebrex 200mg twice a day for two weeks with food - Oxycodone 5-10mg (1-2tabs) every 4-6 hours as needed DVT Prophylaxis With any surgery, you are at increased risk for blood clots. Please take the follow measures to prevent blood clots and read the warning signs to watch for. Please take the follow anticoagulant: Aspirin 81mg twice a day for 6 weeks If you were given LORENE compression stockings, these are to be worn on both legs for 18-20 hours daily for 3 weeks Warning signs: Calf pain, lower extremity swelling, numbness/tingling, skin discoloration, increased pain, shortness of breath, chest pain. Please contact our office if you experience any of these symptoms or call 911 if you are having trouble breathing. Ice Ice your operative site at least 5 times a day for 15-30 minutes at a time, for the first three days, then as needed. This will help to reduce swelling and pain. Make sure you have a thin cloth between the ice or cooling unit and your skin to prevent lopez bite. This is especially important if you received a nerve block. When you are icing, prop your leg up with pillows/blankets under the ankle, NOT under the knee, to avoid getting a flexion contracture and to help get the knee extended. Diet/Nausea/Vomiting Start by drinking clear liquids and eating crackers. If you can tolerate this, then you may resume your normal diet. If you feel nauseated or vomit, take Zofran/ondansetron (if prescribed). Please call our office if you have intractable nausea or vomiting, or, if after hours, you may go to the Emergency Room for help. Surgical Dressing Please leave on any dressing until you are seen by the PA for your post- operative appointment. If there are any issues with your dressing please notify your home health nurse or give our office a call. Weight bearing, Range of Motion, Activity You will be weight bearing as tolerated on your operative site. You will need a walker to assist in ambulation. You can begin doing range of motion immediately You are encouraged to stand and walk short distances in the house as tolerated with your walker Physical therapy You will do your rehab for the first two weeks with home health. Then you will begin outpatient physical therapy. It is very important you follow your rehab protocol and do your exercises as instructed by your provider and physical therapist. Wound Care and Showering We will inspect your wound at your first post-operative visit. It is normal to see some dried blood on the dressing. Do not remove your dressing, paper strips or sutures yourself unless otherwise instructed. Showering is allowed post op day 3. Once your dressing is changed in the office to the water-resistant dressing. You can shower with this on as long as all the edges are in tact. You may want to reinforce with waterproof covering (i.e Press N Seal) To promote wound healing, we recommend taking a multi-vitamin, or taking 500mg Vitamin C supplement twice a day for two weeks and 325mg Iron supplement twice a day for two weeks. Constipation Constipation is a common side effect of narcotic pain medication, dehydration after surgery and iron supplement (if you were instructed to begin that after surgery). We recommend purchasing an [id number] laxative such as Milk of Magnesia, Colace, Dulcolax, Miralax or Senna from a local pharmacy, and taking it as instructed. Stay hydrated and you may increase your fiber in your diet as well. Call our clinic if any questions. Driving You may not drive while taking narcotic pain medication and until you have full function of your leg. Length of time you can expect to be unable to drive varies from person to person, and depends on which knee is getting replaced, but as a general rule of thumb plan for 4-6 weeks no driving Driving will be discussed at your first post op appointment Travel Avoid long distance travel (greater than 1 hour) in airplanes and cars for the first 6 weeks after surgery. Follow-up Please attend your post operative appointments as scheduled. At these appointments, we may do dressing change and remove any sutures/ailin/Zip-line 10-14 days after your surgery. If you do not know your post operative appointment dates or times please call the office at [phone] When to call the office It is normal to have swelling and bruising in the limb that was operated on. This will improve with time. It is also normal to have fevers for the first 2 days after surgery. Reasons you should call your doctor include: Uncontrolled pain; Nausea, vomiting, or constipation that does not improve with medication; Fevers over 101.5, chills, sweats; Drainage or bleeding from the wound; Foul odor; Spreading areas of redness; calf pain or swelling, shortness of breath, chest pain; Any other concerns You may call the office at [phone]. If it is a medical emergency please call 911. Pending Studies at Discharge: Yes Studies:: left knee joint and synovium Stand-Alone Forms: [facility], Smoking Cessation Medications and DC Order Prescriptions: New ferrous gluconate 324 mg (38 mg iron) Tablet 324 mg PO BIDM Qty: 30 0RF acetaminophen [Tylenol Extra Strength] 500 mg Tablet 1,000 mg PO Q8 PRN (Reason: pain) Qty: 30 0RF aspirin 81 mg Tablet,Delayed Release (Dr/Ec) 81 mg PO BID Qty: 30 0RF celecoxib [Celebrex] 200 mg Capsule 200 mg PO BID 14 Days Qty: 28 0RF oxycodone 5 mg Tablet 5 - 10 mg PO Q4H PRN (Reason: pain) Qty: 18 0RF Rx Instructions: max 6 tabs/day docusate sodium 100 mg Capsule 100 mg PO BID Qty: 30 0RF ascorbic acid (vitamin C) [Vitamin C] 500 mg Tablet 500 mg PO BIDM Qty: 30 0RF Continued alendronate [Fosamax] 70 mg tablet 70 mg PO WK Qty: 12 0RF Patient Comments: takes on monday am rosuvastatin 10 mg tablet 10 mg PO HS cholecalciferol (vitamin D3) [Vitamin D3] 50 mcg (2,000 unit) Capsule 50 mcg PO DAILY Discontinued acetaminophen [Tylenol Extra Strength] 500 mg tablet 1,000 mg PO Q8 PRN (Reason: pain) Qty: 30 0RF oxycodone 5 mg Tablet 5 - 10 mg PO Q4H PRN (Reason: pain) Qty: 18 0RF Patient Comments: DOES NOT TAKE Rx Instructions: 5 mg for pain 1-5 10 mg for pain 6-10 Krames/Other Patient Handouts: Total Knee Replacement, Knee Replace Home Recovery, Knee Replace 1st Month Admission Data Admit Date/Time: 02/18/25 10:25 Attending Provider: Sebastián Miranda Admit Provider: Sebastián Miranda Primary Care Provider: Kareen Malagon Other Providers: Adis Forte; Clifford Dias; Dario Lopes; Maxx Rowley; Shehkar Dias; Amparo Morgan; Samantha Gunn; Yoselyn Moy; Johana March; Papo Saez; Melly Rowland; Vicente Kulkarni; Jorge Oshea; Clifford Singh; Cruz Johnson; Armin Haley; Janay Piedra; Janay Najera; Nneka Whitmore; Tricia Gaffney N; Cristina Hall; Adrian George; Rashaun Eagle; Ash Rodriguez; Linh Perrin.; Destiny Winn; Kya Wise; Georges Acosta; Yissel Whalen; Maxx Obrien; Arely Peralta; Renetta Perkins; Kathy Harden; Gaurav Bueno; Jamey Hicks; Reina Portillo; Ravindra Dey; Linda Mcleod; Jelani Beltran; Jessica Henry; Juan Anaya; Nisha Barnett; Yumiko Allan; Klaudia Anaya; Bry Farfan; [facility] Other Interventions: Discharge Summary Assessment (RN) Last Done: 02/19/25 09:42
[2025-02-19 09:43] VITALS: BP 118/81; PULSE 74
[2025-02-23] MEDS ORDERED: ALENDRONATE SODIUM 70 MG TAB PO SCH (07:00)
== END 2025-02-19 10:16 | disposition home health service (06) ==
LOC: ASU 05:26 → 3E 05:26